=== PATIENT | male | born 1975 | race Caucasian/White ===

== ENCOUNTER 2022-03-19 15:34 | Emergency (ER) | payer OTHER, SELFPAY ==
[2022-03-19 15:49] VITALS: BP 151/103; PULSE 90; RESP 24; TEMP 35.8; O2SAT 100
--- NOTE | 2022-03-19 16:08 | ED.ABDPAIN ---
HPI - Abdominal Pain General Chief Complaint: Abdominal Pain Stated Complaint: abd pain n/v/d/sob Time Seen by Provider: 03/19/22 16:05 Source: patient Mode of arrival: ambulatory Limitations: no limitations History of Present Illness HPI narrative: Mr. Enamorado is a 46-year-old male patient presenting to the clinic today with a 3 day history of abdominal pain, nausea, vomiting, diarrhea, and shortness of breath. He is able to speak in full sentences as his SpO2 is 100% on room air currently. States that he has had abdominal pain this started on the left side but now radiates to the right side. He denies any known fever. He does feel as though his abdomen is distended. Currently rating his pain 02/15 Related Data Home Medications Medication Instructions Recorded Confirmed No Home Medications 03/19/22 03/19/22 Allergies Allergy/AdvReac Type Severity Reaction Status Date / Time codeine Allergy Unknown Itching Verified 03/19/22 17:09 Penicillins Allergy Unknown Unknown Verified 03/19/22 17:08 CODE Allergy Unknown ITCHING Uncoded 03/19/22 15:38 Review of Systems Review of Systems: Pertinent positives per HPI. Patient denies any fever, chills, rash, headache, visual changes, dizziness, cough, runny nose, sore throat, shortness of breath, chest pain, palpitations, constipation, or any urinary issues. [facility] Family History Family History Father Carcinoma of colon Mother Family history of lung cancer Other Family history of allergic disorder Hypertension Social History Social History Smoking status: Heavy tobacco smoker Comments At the time of my signature, I reviewed and agree with the nursing past medical, surgical, social, and family history. There is no relevant family history pertinent to the patient complaint. Exam Narrative: General: Well-developed, well nourished, in no apparent distress. Head: Normocephalic, atraumatic. Cardio: Regular rate and rhythm, s1 and s2 normal, no murmur appreciated. Resp: Clear to auscultation bilaterally, no rhonchi, rales, wheezing or rubs. Abdomen: Soft, pliable, distension, exquisite tenderness to palpation over the lower abdomen, no organomegly, no CVAT tenderness. Course Course Emergency Course: Portions of this record may have been created with voice recognition software. Level of Care: Express Care Visit Vital Signs Vital signs: Vital Signs Temperature 35.8 C L 03/19/22 15:49 Pulse Rate 90 03/19/22 15:49 Respiratory Rate 24 H 03/19/22 15:49 Blood Pressure 151/103 H 03/19/22 15:49 Pulse Oximetry 100 03/19/22 15:49 Oxygen Delivery Room Air 03/19/22 15:49 Temperature 35.8 C L 03/19/22 15:49 Pulse Rate 90 03/19/22 15:49 Respiratory Rate 24 H 03/19/22 15:49 Blood Pressure 151/103 H 03/19/22 15:49 Pulse Oximetry 100 03/19/22 15:49 Oxygen Delivery Room Air 03/19/22 15:49 Vital signs reviewed Transfer Transfered to: [facility] Transportation: Other ( private car) Transfer rationale: severe lower abdominal pain, shortness of breath, weak, nausea, vomiting, diarrhea Accepting physician: Dr. Betancourt Transfer comments: transfer via private car patient declined ALS MDM - Abdominal Pain MDM Narrative Medical decision making narrative: At the time of visit patient is sitting in a wheelchair moaning and in pain. Patient pushed my hand away when I tried to evaluate his abdomen. Recommend the patient be transferred to the ER for further evaluation as he has a 10/10 pain with weakness and shortness of breath. Contacted Dr. Betancourt @ [facility] and he accepts patient for transfer Differential Diagnosis Differential diagnosis: Likely abdominal pain, acute appendicitis, constipation, diverticulitis, gastroenteritis, pancreatitis and small bowel obstruction Discharge Plan Discharge Clinical Im
--- NOTE | 2022-03-19 16:16 | PC.NURSE ---
1605 provider to provider report given. initially pt stated would call brother to provide transportation, but brother unable to come to c and now will call someone else to provide transportation dt not wanting to go by ems at 1610.
--- NOTE | 2022-03-19 16:18 | PC.NURSE ---
has another person coming to [facility] to provide transportation to er for further f/u.
--- NOTE | 2022-03-19 16:20 | PC.NURSE ---
1618 report to demetri webb at er. pt came out of room and was calling for help to go to br. is currently in br and awaiting transportation to er.
--- NOTE | 2022-03-19 16:25 | PC.NURSE ---
1625 cont to be in br. stated had to do #2, aware to pull cord for nurse call when finished.
== END 2022-03-19 16:34 | disposition short-term general hospital (02) ==
PROVIDERS: Emergency Provider Nurse Practitioner Family
DX: R06.02 Shortness of breath (principal); R10.30 Lower abdominal pain, unspecified; R11.2 Nausea with vomiting, unspecified; R19.7 Diarrhea, unspecified; F17.200 Nicotine dependence, unspecified, uncomplicated
CPT/HCPCS: 99212; G0463

== ENCOUNTER 2022-03-19 16:57 | Inpatient (IN) | payer OTHER, SELFPAY ==
--- NOTE | ~2022-03-19 | CT_ITS ---
EXAMINATION: CT abdomen pelvis w con DATE: 03/19/2022 19:42 INDICATION: Low abdominal pain. TECHNIQUE: Computed tomography (CT) of the abdomen and pelvis was performed with 100 mL Omnipaque 350 intravenous contrast. Automated exposure control and iterative reconstruction technique were employe d. The dose-length product was 820.84 mGy-cm. COMPARISON: CT abdomen and pelvis 11/21/2013 FINDINGS: The visualized portions of the lung bases demonstrate mild atelectasis. No pleural effusion . The heart size is normal. No pericardial effusion. The liver is normal. There are changes of cholec ystectomy. The spleen, pancreas, adrenal glands, and kidneys are normal. There are scattered divertic ira in the colon. There is fat stranding around a diverticulum of the sigmoid colon. There is free ga s around sigmoid colon and scattered throughout the peritoneum including under the diaphragm. There i s wall thickening of the sigmoid colon and multiple loops of small bowel. There are dilated loops of small bowel, consistent with adynamic ileus. The appendix is normal. There is a small volume of ascit es. There are no pathologically enlarged lymph nodes. There is mild thoracolumbar spondylosis. IMPRESSION: 1. Perforated sigmoid diverticulitis with small volume of ascites, peritonitis, and adynamic ileus. Reviewed, dictated and finalized at location A. ANALYST
[2022-03-19 17:03] VITALS: BP 160/119; PULSE 103; RESP 16; TEMP 38.1; O2SAT 100
--- NOTE | 2022-03-19 17:26 | ECG_ITS ---
Measurements Intervals [place] Rate: 108 P: 19 FL: 116 QRS: -21 QRSD: 89 T: 59 QT: 323 QTc: 435 Interpretive Statements SINUS TACHYCARDIA WITH SHORT FL INTERVAL POSSIBLE LEFT ATRIAL ENLARGEMENT EARLY PRECORDIAL R/S TRANSITION LEFT VENTRICULAR HYPERTROPHY NONSPECIFIC ST & T-WAVE ABNORMALITY- ANTEROLATERAL LEADS ABNORMAL ECG NO PREVIOUS ECG AVAILABLE FOR COMPARISON Electronically Signed On 03-20-2022 6:40:31 [employer]AIGHT KNIFE [employer]UTTER MACHINE by Bill Gray D.O.
[2022-03-19 17:43] LABS: Basophils Absolute Auto 0.1 K/mm3 (0.0-0.1); Basophils Percent Auto 0.4 % (0.2-1.2); Hematocrit 47.1 % (42.0-52.0); Hemoglobin 16.4 g/dL (14.0-18.0); Immature Granulocyte Absolute 0.11 K/mm3 (0.00-0.031); Immature Granulocyte Percent A 0.6 % (0-0.5); Lymphocytes Absolute Auto 1.13 K/mm3 (0.9-3.2); Lymphocytes Percent Auto 5.9 % (18.3-44.2); Mean Corpuscular HGB Conc 34.8 g/dl (32-36); Mean Corpuscular Hemoglobin 31.2 pg (26-34); Mean Corpuscular Volume 89.5 fl (80-100); Mean Platelet Volume 11.7 fl (7.4-10.4); Monocytes Absolute Auto 0.8 K/mm3 (0.1-0.6); Monocytes Percent Auto 4.2 % (2.6-8.5); Neutrophils Percent Auto 88.9 % (45.5-73.1); Platelet Count Result 271 k/mm3 (150-375); Red Blood Count 5.26 M/mm3 (4.6-6.20); Red Cell Distribution Width 12.9 % (11.5-14.5); White Blood Count 19.1 K/mm3 (4.5-10.0)
[2022-03-19 17:55] LABS: Alanine Aminotransferase 39 U/L (6-50); Albumin Level 4.7 g/dL (3.5-5.1); Alkaline Phosphatase 125 U/L (38-126); Anion Gap 19 mmol/L (8-16); Aspartate Amino Transferase 26 U/L (17-59); Blood Urea Nitrogen 15 mg/dL (9-20); Carbon Dioxide 24 mmol/L (22-30); Chloride 89 mmol/L (98-107); Estimated CRCL calculation 106 ml/min; Estimated Glomerular Filt Rate > 60; Glucose 263 mg/dL (65-110); Lipase 29 U/L (23-300); Potassium 3.6 mmol/L (3.4-5.0); Sodium 132 mmol/L (137-145)
[2022-03-19] MEDS: ACETAMINOPHEN 500 MG TABLET 1000 MG PO (18:46)
--- NOTE | 2022-03-19 19:07 | ED.ABDPAIN ---
HPI - Abdominal Pain General Chief Complaint: Abdominal Pain Stated Complaint: abd pain Time Seen by Provider: 03/19/22 18:56 History of Present Illness HPI narrative: 46-year-old male presenting to the emergency department for evaluation of lower abdominal pain. Patient states the pain initially started approximately 3 days ago and was at the left lower quadrant. Patient states the pain is persisted and is now across the entire abdomen but more focal in the right lower quadrant. Patient does report associated nausea vomiting and diarrhea. Patient does have a prior history of cholecystectomy and ventral hernia without repair. Patient does have history of high blood pressure but does not take his lisinopril at this time. Patient denies any prior history of diabetes or ACS. Related Data Home Medications Medication Instructions Recorded Confirmed No Home Medications 03/19/22 03/19/22 Allergies Allergy/AdvReac Type Severity Reaction Status Date / Time codeine Allergy Unknown Itching Verified 03/19/22 17:09 Penicillins Allergy Unknown Unknown Verified 03/19/22 17:08 CODE Allergy Unknown ITCHING Uncoded 03/19/22 15:38 Review of Systems Review of Systems: CONSTITUTIONAL: Denies fever, chills, or sweats. EYES: Denies visual changes, redness, or discharge. ENT: Denies rhinorrhea, congestion, sore throat, or otalgia. CARDIOVASCULAR: Denies chest pain, palpitations, or edema. RESPIRATORY: Denies cough or dyspnea. GASTROINTESTINAL: See HPI GENITOURINARY: Denies dysuria or hematuria. SKIN: Denies rash or itching. MUSCULOSKELETAL: Denies back pain, joint pain, or myalgia. NEUROLOGIC: Denies headache, numbness, or weakness. PMFSH Family History Family History Father Carcinoma of colon Mother Family history of lung cancer Other Family history of allergic disorder Hypertension Social History Social History Smoking status: Heavy tobacco smoker Exam Narrative: APPEARANCE: Well appearing, no pain, no distress, well-nourished. HEAD: normocephalic, atraumatic. EYES: PERRLA/EOMI, conjunctivae clear. NOSE: Normal no drainage NECK: Supple. No adenopathy, no masses. RESPIRATORY: Airway patent, respirations nonlabored. Clear to auscultation bilaterally, no rales, rhonchi, wheezing. CARDIOVASCULAR: Regular rate and rhythm without murmurs rubs or gallops. ABDOMINAL: Soft, nondistended, decreased bowel sounds, lower abdominal tenderness to palpation with focal tenderness in the right lower quadrant. MUSCULOSKELETAL: Moves all extremities. Strength/ROM intact, No edema, No calf tenderness. NEURO: Alert. Cranial nerves II through XII intact. Good gait. Good coordination SKIN: Warm, dry. Normal Color PSYCHIATRIC: Normal affect/mood. Course Course Emergency Course: Case discussed with surgery and patient is being taken to the OR by Dr. Casas. Patient was started on Cipro and Flagyl. Patient was updated on the results of the work-up and plan for admission and surgery. All questions and concerns were addressed. Vital Signs Vital signs: Vital Signs Temperature 100.5 F H 03/19/22 17:03 Pulse Rate 103 H 03/19/22 17:03 Respiratory Rate 16 03/19/22 17:03 Blood Pressure 160/119 H 03/19/22 17:03 Pulse Oximetry 100 03/19/22 17:03 Oxygen Delivery Room Air 03/19/22 17:03 Temperature 100.5 F H 03/19/22 17:03 Pulse Rate 99 03/19/22 21:12 Respiratory Rate 22 H 03/19/22 21:12 Blood Pressure 158/108 H 03/19/22 19:15 Pulse Oximetry 97 03/19/22 21:12 Oxygen Delivery Room Air 03/19/22 17:03 MDM - Abdominal Pain Lab Data Attestation: I reviewed the patient's lab results. Result diagrams: 03/19/22 17:38 03/19/22 17:38 Labs: Lab Results 03/19/22 03/19/22 03/19/22 Range/Units 17:38 17:38 20:28 WBC 19.1 H (4.5-10.0) K/mm3 RBC 5.26
[2022-03-19 19:15] VITALS: BP 158/108; PULSE 96; RESP 17; O2SAT 97
[2022-03-19] MEDS: SODIUM CHLORIDE 0.9% IV 1,000 ML 999 ML IV CONT (19:23)
[2022-03-19] MEDS: HYDROmorphone HCL INJ (*CRX) 1 MG/ML SYR IV PUSH ×2 (19:23→21:40)
[2022-03-19] MEDS: ONDANSETRON INJ 4 MG/2 ML VIAL IV PUSH (19:23)
--- NOTE | 2022-03-19 19:30 | PC.NURSE ---
Patient taken to CT via stretcher.
[2022-03-19] MEDS: metroNIDAZOLE 500 MG/ISO 100ML 500 MG/100 ML BAG 100 MG IVPB (20:27)
[2022-03-19 21:09] LABS: SARS-CoV-2 RNA PCR Negative
[2022-03-19 21:12] VITALS: PULSE 99; RESP 22; O2SAT 97
[2022-03-19] MEDS: LACTATED RINGERS 1,000 ML 100 ML IV CONT (21:40)
[2022-03-19] MEDS: CIPROFLOXACIN 400 MG/D5W 200ML 200 ML 200 MG IVPB (21:41)
--- NOTE | 2022-03-19 21:42 | PM.IMHP ---
H&P: HPI History of Present Illness Date/Time: 03/19/22 21:42 Chief Complaint: Abdominal pain with loss of appetite, nausea and vomiting Narrative: This is [id number] tall white male presenting to the emergency department for evaluation of lower abdominal pain.? Patient states the pain initially started approximately 3 days ago and was at the left lower quadrant.? this came pain seemed to come on gradually over a 24 hour period. He ate okay on Tuesday but then since Tuesday has only been drinking water and feeling bad. He states I probably should have came in yesterday . Patient states the pain has persisted and is now across the entire abdomen but more focal in the right lower quadrant.? Patient does report associated nausea, vomiting, and diarrhea. Further history to me he states that he had 2 small loose stools this morning. Typically has 1 bowel movement today but over the last 3 days he has been having loose stools more frequently. Pain reached such in intensity today that he 1st went to an urgent care in the afternoon and after being checked they felt he was more serious than a good handle on send him to the emergency room. Workup in the emergency room tonight reveals a white count [id number]. He also had elevated glucose at 263 but not previously known to be diabetic. His blood pressure was elevated and he has had hypertension the past but not on anything now for last [address] scan of the abdomen and pelvis was completed and shows perforated sigmoid diverticulitis with free air surrounding a diverticulum in the sigmoid colon and extending elsewhere in the abdomen including under the diaphragms. There was also ileus with small bowel wall thickening of the loops of small bowel near the left lower quadrant. Patient has signs of peritonitis on exam. ?Patient does have a prior history of cholecystectomy and ventral hernia without repair.? Patient does have history of high blood pressure but does not take his lisinopril at this time.? Patient denies any prior history of diabetes. Review of Systems Constitutional: Comments: CONSTITUTIONAL: Denies fever, chills, or sweats. EYES: Denies visual changes, redness, or discharge. ENT: Denies rhinorrhea, congestion, sore throat, or otalgia. CARDIOVASCULAR: Denies chest pain, palpitations, or edema.Was on hypertensive medication until years ago. RESPIRATORY: Denies cough or dyspnea. GASTROINTESTINAL: See HPI, Previous history of cholecystectomy and hemorrhoid surgery GENITOURINARY: Denies dysuria or hematuria. SKIN: Denies rash or itching. MUSCULOSKELETAL: Denies back pain, joint pain, or myalgia. does complain of some right shoulder discomfort possibly related to regarding his abdomen and pushing himself up out of bed NEUROLOGIC: Denies headache, numbness, or weakness. [facility] Past Medical History Medical History (Updated 03/20/22 @ 00:00 by Background Daotis) Hypertension was on lisinopril for a while but stopped about 3 years ago when his pressure became better Marijuana abuse Obesity (BMI 30-39.9) Surgical History Surgical History (Updated 03/19/22 @ 21:56 by Ricardo Casas MD) History of hemorrhoidectomy History of laparoscopic cholecystectomy Family History Family History Father Carcinoma of colon Mother Family history of lung cancer Other Family history of allergic disorder Hypertension Social History Social History Smoking status: Heavy tobacco smoker Meds Home Medications and Allergies Home Medications Medication Instructions Recorded Confirmed Type No Home Medications 03/19/22 03/19/22 History Allergies Allergy/AdvReac Type Severity Reaction Status Date / Time codeine Allergy Unknown Itching Verified 03/19/22 17:09 Penicillins Allergy Unknown Unknown Verified 03/19/22 17:08 CODE Allergy Unknown ITCHING Uncoded 03/19/22
[2022-03-19 22:17] VITALS: TEMP 36.9
--- NOTE | 2022-03-19 22:33 | WPDANESEPP ---
Anes - Eval Pre Procedure Procedure: Operation Date: 03/19/22 22:30 Proposed Procedures p Exploratory Laparotomy, Pos Bowel Resec - Ricardo Casas MD Date/Time: 03/19/22 22:33 Pre Op Diagnosis: abd pain Patient Data Age: 46 Gender: M Height: 1.88 m Weight: 108.86 kg Last Vital Signs Temp 36.9 C 03/19/22 22:17 Pulse 99 03/19/22 21:12 Resp 22 H 03/19/22 21:12 BP 158/108 H 03/19/22 19:15 Pulse Ox 97 03/19/22 21:12 O2 Del Method Room Air 03/19/22 17:03 Allergies Allergy/AdvReac Type Severity Reaction Status Date / Time codeine Allergy Unknown Itching Verified 03/19/22 17:09 Penicillins Allergy Unknown Unknown Verified 03/19/22 17:08 CODE Allergy Unknown ITCHING Uncoded 03/19/22 15:38 Home Medications Medication Instructions Recorded Confirmed Type No Home Medications 03/19/22 03/19/22 History Laboratory Tests 03/19/22 03/19/22 03/19/22 17:38 17:38 20:28 WBC 19.1 K/mm3 H K/mm3 (4.5-10.0) RBC 5.26 M/mm3 M/mm3 (4.6-6.20) Hgb 16.4 g/dL g/dL (14.0-18.0) Hct 47.1 % % (42.0-52.0) MCV 89.5 fl fl (80-100) MCH 31.2 pg pg (26-34) MCHC 34.8 g/dl g/dl (32-36) RDW 12.9 % % (11.5-14.5) Plt Count 271 k/mm3 k/mm3 (150-375) MPV 11.7 fl H fl (7.4-10.4) Immature Gran % (Auto) 0.6 % H % (0-0.5) Neut % (Auto) 88.9 % H % (45.5-73.1) Lymph % (Auto) 5.9 % L % (18.3-44.2) [place] % (Auto) 4.2 % % (2.6-8.5) Eos % (Auto) 0.0 % % (0-4.4) Baso % (Auto) 0.4 % % (0.2-1.2) Lymph # (Auto) 1.13 K/mm3 K/mm3 (0.9-3.2) [place] # (Auto) 0.8 K/mm3 H K/mm3 (0.1-0.6) Eos # (Auto) 0.0 K/mm3 K/mm3 (0-0.3) Baso # (Auto) 0.1 K/mm3 K/mm3 (0.0-0.1) Abs Immat Gran (auto) 0.11 K/mm3 H K/mm3 (0.00-0.031) Absolute Neuts (auto) 17.0 K/mm3 H K/mm3 (1.3-6.7) Absolute Nucleated RBC 0.0 K/mm3 K/mm3 (0.0-0.012) Nucleated RBC % 0.0 % % (0.0-0.2) Sodium 132 mmol/L L mmol/L (137-145) Potassium 3.6 mmol/L mmol/L (3.4-5.0) Chloride 89 mmol/L L mmol/L (98-107) Carbon Dioxide 24 mmol/L mmol/L (22-30) Anion Gap 19 mmol/L H mmol/L (8-16) BUN 15 mg/dL mg/dL (9-20) Creatinine 1.00 mg/dL mg/dL (0.7-1.3) Estim Creat Clear Calc 106 ml/min ml/min Estimated GFR > 60 (59 - ) Glucose 263 mg/dL H mg/dL (65-110) Calcium 9.0 mg/dL mg/dL (8.4-10.2) Total Bilirubin 2.0 mg/dL H mg/dL (0.2-1.3) AST 26 U/L U/L (17-59) ALT 39 U/L U/L (6-50) Alkaline Phosphatase 125 U/L U/L (38-126) Total Protein 8.0 g/dL g/dL (6.3-8.2) Albumin 4.7 g/dL g/dL (3.5-5.1) Lipase 29 U/L U/L (23-300) SARS-CoV-2 RNA (RT-PCR) Negative Patient hx anesthesia problems: none Family hx anesthesia problems: none Results Review: All pre-operative results and documents have been reviewed as part of the pre-operative evaluation. [facility] Past Medical History Medical History (Updated 03/19/22 @ 22:33 by Vidhya Lopez CRNA) Hypertension was on lisinopril for a while but stopped about 3 years ago when his pressure became better Marijuana abuse Obesity (BMI 30-39.9) Surgical History Surgical History (Updated 03/19/22 @ 21:56 by Ricardo Casas MD) History of hemorrhoidectomy History of laparoscopic cholecystectomy Family History Family History Father Carcinoma of colon Mother Family history of lung cancer Other Family history of allergic disorder Hypertension Social History Social History Smoking status: Heavy tobacco smoker Exam Day of Procedu
--- NOTE | 2022-03-19 22:52 | P.PNAN_ITS ---
Anes - Eval Final PreProcedure Day of Procedure 03/19/22 22:52 Heart: regular rate and rhythm Lungs: clear to auscultation Airway: Mallampati scale class II Neurological: alert and oriented Last oral intake: >/= 8 hours ASA classification: III Emergent: yes Anesthetic plan: proceed Anesthesia type and monitoring: general ETT and standard monitoring Results Review: All pre-operative results and documents have been reviewed as part of the pre- operative evaluation. Informed Consent: The patient's anesthetic plan and its attendant risks and benefits were discussed with the patient/family/POA. Questions were solicited and answers provided to the satisfaction of the patient/family/POA.
[2022-03-20] VITALS (14 sets, daily range): BP systolic 131–153; BP diastolic 94–107; PULSE 84–94; RESP 11–20; TEMP 36.1–36.8; O2SAT 93–97; BMI 28.6
[2022-03-20] MEDS: LACTATED RINGERS 1,000 ML 30 ML IV CONT ×2 (01:30)
[2022-03-20] MEDS: fentaNYL CITRATE INJ (*CRX) 100 MCG/2 ML VIAL 25 MCG IV PUSH ×5 (01:48→02:52)
[2022-03-20] MEDS: ONDANSETRON INJ 4 MG/2 ML VIAL IV PUSH ×4 (02:11→20:25)
--- NOTE | 2022-03-20 02:11 | W.PM.PROC2 ---
Procedure Note - Detailed Date of Procedure 03/20/22 Pre-op Diagnosis Perforated sigmoid diverticulitis with peritonitis Post-op Diagnosis Same Procedure Performed Insé's Procedure (Open sigmoid colectomy with left-sided end colostomy). Exploratory laparotomy Peritoneal irrigation Surgeon Ricardo Casas MD Engine Oiler Miriam MEEKS, [place] field research assistant Anesthesia General Indications See history and physical Patient presented to the ER with 3 days of worsening pain in the abdomen along with nausea vomiting and some diarrhea. Workup in the ED revealed elevated white count [id number] significant peritoneal tenderness and a CT scan showing free perforation of a sigmoid diverticulum into the mid abdomen with free air under the diaphragms. Findings Open midline incision was made approximately 2 cm opening on the mesenteric side of the sigmoid colon at the proximal extent. There were several loops of small bowel densely adherent along with omentum to an area of fluid collection next to this. There was also yellowish cloudy permanent fluid up along the right side of the liver and anteriorly in up near the spleen. Description of Procedure The patient was brought to the operating room and placed in the supine position. Angulo catheter was placed after intubation and anesthetization in the OR. The patient was appropriately padded and time-out was performed confirming patient and surgical plan. The perineum was prepped with Betadine and the abdomen was prepped with chlorhexidine. Four towels were placed around the mid abdomen and a laparotomy drape was applied. Following this I opened through a generous midline incision started in the suprapubic region extending up and just a little bit around and above the umbilicus on the right. We continued this down through the subcutaneous tissues to expose the midline fascia. I Tented up the peritoneum with a hemostat andentered the abdomen just below the umbilicus a finger was placed in the peritoneum and we opened the midline fascia and peritoneum up to the upper extent of the incision slightly above the level of the umbilicus and down not quite to the pubic bone. Careful exploration was started and immediately underneath slightly to the left of this midline incision there was the upper portion of the sigmoid. There was about a 2 cm hole in the sigmoid and cloudy yellow fluid and a small amount of feculent material wasl coming out of it. There was inflammatory exudate on the loops of small bowel surrounding this area. also the omentum was involved in trying to wall this off. The The loops of small bowel were carefully dissected away and they did come away fairly easily. We suctioned some cloudy fluid from around the area and gently broke up some inflammatory adhesions between these loops of bowel the omentum and the medial side of the proximal sigmoid colon. I decided not to send culture since it appeared to be feculent material and we would treat for this anyway with the Cipro and metronidazole that he received preop. I then carefully the small-bowel and packed it away cephalad. Prior to doing much dissection we obtained the large wound protector and inserted this and did the exploration through this along with the surgical resection. The patient was placed in Trendelenburg position and we carefully took down the white line of Toldt lateral to the sigmoid colon extending down to its junction Above but near rectosigmoid area. This allowed us to mobilize this portion of the colon up into the wound to some degree. I then dissected superiorly and freed this colon up laterally such that we were a good 10 cm above the opening. this dissection used Bovie cautery and then the LigaSure device along the lateral attachments of the descending colon. I was able to identify the left ureter in the retroperitoneum posterior to our dissection and we were well away from this during the mobilization of the left colo
--- NOTE | 2022-03-20 03:40 | ADMGEN ---
This patient, Bernard Enamorado, was admitted to [facility] Surg Room 313-01. Patient/family oriented to hospital policies and general routines including ID bracelet, bed and alarms, visiting hours, pain management, procedures, bathroom and other care routines, personal items, smoking policy, room service/diet, and visiting hours. Information on how to activate the Rapid Response Team has been discussed. Patient/Family are encouraged to report perceived risks to care and to ask questions if they do not understand what they are told or what they should do.
[2022-03-20] MEDS: MORPHINE SULFATE (*CRX) 4 MG/ML INJ IV PUSH ×4 (03:59→16:17)
[2022-03-20] MEDS: metroNIDAZOLE 500 MG/ISO 100ML 500 MG/100 ML BAG 100 MG IVPB ×3 (04:04→20:37)
[2022-03-20] MEDS: LACTATED RINGERS 1,000 ML 100 ML IV CONT ×2 (04:32→16:17)
--- NOTE | 2022-03-20 09:14 | WPDANESPN ---
Anes - Prog Note Post-Op Date/Time: 03/20/22 09:14 Cardiovascular status: normal Respiratory status: normal Airway patency: baseline Mental status: baseline Post-Op hydration status: normal Vital Signs: Last Vital Signs Temp 36.8 C 03/20/22 05:00 Pulse 91 03/20/22 05:00 Resp 18 03/20/22 05:00 BP 142/96 H 03/20/22 06:36 Pulse Ox 96 03/20/22 05:00 O2 Del Method Room Air 03/20/22 02:44 O2 Flow Rate 8 03/20/22 01:44 Pain Score (VAS): 10 I/O: Intake & Output 03/19/22 03/20/22 03/20/22 23:59 07:59 15:59 Intake Total 1400 1900 100 Output Total 335 Balance 1400 1565 100 Laboratory Tests 03/19/22 17:38 03/19/22 17:38 03/19/22 03/19/22 03/19/22 17:38 17:38 20:28 WBC 19.1 H RBC 5.26 Hgb 16.4 Hct 47.1 MCV 89.5 MCH 31.2 MCHC 34.8 RDW 12.9 Plt Count 271 MPV 11.7 H Immature Gran % (Auto) 0.6 H Neut % (Auto) 88.9 H Lymph % (Auto) 5.[address] [place] % (Auto) 4.2 Eos % (Auto) 0.0 Baso % (Auto) 0.4 Lymph # (Auto) 1.13 [place] # (Auto) 0.8 H Eos # (Auto) 0.0 Baso # (Auto) 0.1 Abs Immat Gran (auto) 0.11 H Absolute Neuts (auto) 17.0 H Absolute Nucleated RBC 0.0 Nucleated RBC % 0.0 Sodium 132 L Potassium 3.6 Chloride 89 L Carbon Dioxide 24 Anion Gap 19 H BUN 15 Creatinine 1.00 Estim Creat Clear Calc 106 Estimated GFR > 60 Glucose 263 H Calcium 9.0 Magnesium Total Bilirubin 2.0 H AST 26 ALT 39 Alkaline Phosphatase 125 Total Protein 8.0 Albumin 4.7 Lipase 29 SARS-CoV-2 RNA (RT-PCR) Negative 03/20/22 07:34 WBC RBC Hgb Hct MCV MCH MCHC RDW Plt Count MPV Immature Gran % (Auto) Neut % (Auto) Lymph % (Auto) [place] % (Auto) Eos % (Auto) Baso % (Auto) Lymph # (Auto) [place] # (Auto) Eos # (Auto) Baso # (Auto) Abs Immat Gran (auto) Absolute Neuts (auto) Absolute Nucleated RBC Nucleated RBC % Sodium Potassium Chloride Carbon Dioxide Anion Gap BUN Creatinine Estim Creat Clear Calc Estimated GFR Glucose Calcium Magnesium 2.0 Total Bilirubin AST ALT Alkaline Phosphatase Total Protein Albumin Lipase SARS-CoV-2 RNA (RT-PCR) Post-procedural complaints: none Patient Feedback: Patient satisfied with anesthetic care.
[2022-03-20] MEDS: ENOXAPARIN 40 MG/0.4 ML SYRINGE SUB-Q (09:34)
[2022-03-20] MEDS: FAMOTIDINE 20 MG/2 ML VIAL IV PUSH ×2 (09:34→20:35)
[2022-03-20 11:37] LABS: Anion Gap 11 mmol/L (8-16); Blood Urea Nitrogen 12 mg/dL (9-20); Calcium 8.6 mg/dL (8.4-10.2); Carbon Dioxide 27 mmol/L (22-30); Chloride 96 mmol/L (98-107); Estimated CRCL calculation 116 ml/min; Estimated Glomerular Filt Rate > 60; Glucose 151 mg/dL (65-110); Potassium 3.6 mmol/L (3.4-5.0); Sodium 134 mmol/L (137-145)
[2022-03-20 12:13] LABS: Hemoglobin 15.1 g/dL (14.0-18.0); Mean Corpuscular HGB Conc 35.1 g/dl (32-36); Mean Corpuscular Hemoglobin 30.8 pg (26-34); Mean Corpuscular Volume 87.8 fl (80-100); Mean Platelet Volume 12.2 fl (7.4-10.4); Platelet Count Result 249 k/mm3 (150-375); Red Cell Distribution Width 13.1 % (11.5-14.5); White Blood Count 16.5 K/mm3 (4.5-10.0)
[2022-03-20 13:49] LABS: Band Neutrophils Percent 22 % (0-6); Lymphocytes Absolute Manual 1.48 K/mm3 (1.1-4.5); Monocytes Absolute Manual 0.49 K/mm3 (0.1-0.90); Monocytes Percent Manual 3 % (3-9); Neutrophils Absolute Manual 14.52 K/mm3 (1.3-6.7); Neutrophils Percent Manual 66 % (46-73); Platelet Estimate Adequate (Adequate); Schistocytes None Seen (NORMAL); Total Cells Counted 100
--- NOTE | 2022-03-20 15:56 | PM.PNGS ---
Progress Note: A&P Assessment and Plan (1) Perforation of sigmoid colon due to diverticulitis: Code(s): K57.20 - Diverticulitis of large intestine with perforation and abscess without bleeding Status: Acute Assessment and Plan: This is the main reason for the patient's admission and his surgical intervention. Vital signs are stable. There is no signs of continuing peritonitis. Ostomy appears to be pink. However bowels probably not functional yet even though he has some bowel sounds. Will continue NG suction and decompression to try to prevent significant abdominal bloating which may affect the ostomy viability. Will await return of bowel function. Continue IV fluids and IV antibiotics. (2) Marijuana abuse: Code(s): F12.10 - Cannabis abuse, uncomplicated Status: Acute Assessment and Plan: Patient denies anxiety although he is complaining about various small things in the room. Denies need for nicotine patch. States he does not smoke regular cigarettes but rather occasional cannabis (3) Peritonitis: Code(s): K65.9 - Peritonitis, unspecified Status: Acute Assessment and Plan: status post peritoneal washout. DAVID drain in place in the pelvis. Will continue antibiotics. (4) Obesity (BMI 30-39.9): Code(s): E66.9 - Obesity, unspecified Status: Acute Assessment and Plan: Resolved, BMI down to 28.5 (5) Hypertension: Code(s): I10 - Essential (primary) hypertension Status: Acute Assessment and Plan: whether it is just pain or if the patient has his previously known history of hypertension being recurrent is not yet known. Will treat with p.r.n. hydralazine if systolic goes above 160. Will monitor with serial checks. Will involve hospitalist if medications appear to be needed. Subjective Subjective Date/Time Seen: 03/20/22 13:56 Post Op day: 1 ( Somewhat improved) Patient reports: feels better, still having pain ( mainly left side of the abdomen), no flatus and no bowel movement Interval history: patient requests NG out but I explained to him why we needed. Patient states the nurses had to change the ostomy bag because it began leaking this morning. Review of Systems Review of Systems: All systems reviewed & are unremarkable except as noted in HPI and below Constitutional: Constitutional: Reports as per HPI, Denies chills and Denies fever(s) Cardiovascular: Cardiovascular: Denies chest pain and Denies dyspnea Respiratory: Respiratory: Reports no additional respiratory complaints and Denies dyspnea Gastrointestinal: Gastrointestinal: Reports as per HPI and Denies bloating Musculoskeletal: Musculoskeletal: Reports no additional musculoskeletal complaints Neurologic: Denies memory loss Psychiatric: Psychiatric: Denies memory loss Exam Const: General: alert and awake Orientation/consciousness: patient oriented x3 HENMT: Head: normal to inspection Eyes: Sclera: sclerae normal Pupils: Equal, round and reactive pupils present Neck: Neck: normal visual inspection and no JVD Chest: Chest palpation & inspection: normal inspection of the chest Resp: Effort & Inspection: normal respiratory effort Auscultation: clear to auscultation bilaterally Cardio: Rate: regular rate GI: Inspection: incision ( Not inspected today. Dry gauze dressing over midline incision) and other ( DAVID drain right lower quadrant without much drainage) GI Palp: Yes abdominal tenderness ( consistent with surgery from last night) Auscultation: Hypoactive bowel sounds present Other: inspection of the ostomy reveals the mucosa appears to be pink but flat with the skin level. No gas or liquid in bag. Neuro: General: patient oriented x3 Cranial nerves: Yes Equal, round and reactive pupils present Objective Data Vital Signs Vital Signs: Vital Signs - 24 hr 03/19/22 17:03 03/19/22 19:15 03/19/22 21:12 Temperature 38.1 C H Pulse Rat
[2022-03-20 17:15] LABS: Appearance Urine Slightly Cloudy (Clear); Bilirubin Urine 1+ (Negative); Blood Urine 2+ (Negative); Color Urine Yellow (Yellow); Glucose Urine UA Negative (Negative); Ketones Urine 1+ mg/dL (Negative); Leukocyte Esterase Ur Negative LEU/UL (Negative); Nitrate Urine Negative (Negative); Protein Urine 2+ mg/dL (Negative); Specific Grav Ur >= 1.030 (1.001-1.035)
[2022-03-20 17:21] LABS: Bacteria Urine Trace /hpf; Mucus Urine Rare /lpf; RBC Urine 21-50 /hpf (0-2); Squamous Epithelial Cell Urine Rare /hpf (Few)
[2022-03-20 17:32] LABS: Add Urine Microscopic? YES
[2022-03-20] MEDS: MORPHINE SULFATE (*CRX) 2 MG/ML INJ IV PUSH (20:25)
[2022-03-21] MEDS: MORPHINE SULFATE (*CRX) 4 MG/ML INJ IV PUSH ×6 (00:16→22:30)
[2022-03-21] MEDS: LACTATED RINGERS 1,000 ML 100 ML IV CONT (03:47)
[2022-03-21] MEDS: metroNIDAZOLE 500 MG/ISO 100ML 500 MG/100 ML BAG 100 MG IVPB ×3 (03:57→22:29)
[2022-03-21 05:41] VITALS: BP 175/97; PULSE 99; RESP 18; TEMP 36.2; O2SAT 95
[2022-03-21 06:49] LABS: Basophils Percent Auto 0.2 % (0.2-1.2); Eosinophils Percent Auto 0.1 % (0-4.4); Hematocrit 41.4 % (42.0-52.0); Immature Granulocyte Absolute 0.11 K/mm3 (0.00-0.031); Immature Granulocyte Percent A 0.7 % (0-0.5); Mean Corpuscular HGB Conc 33.8 g/dl (32-36); Mean Corpuscular Hemoglobin 30.5 pg (26-34); Mean Corpuscular Volume 90.2 fl (80-100); Mean Platelet Volume 11.5 fl (7.4-10.4); Monocytes Absolute Auto 1.1 K/mm3 (0.1-0.6); Monocytes Percent Auto 6.6 % (2.6-8.5); Neutrophils Absolute Auto 13.4 K/mm3 (1.3-6.7); Neutrophils Percent Auto 81.4 % (45.5-73.1); Platelet Count Result 260 k/mm3 (150-375); Red Blood Count 4.59 M/mm3 (4.6-6.20); Red Cell Distribution Width 13.2 % (11.5-14.5); White Blood Count 16.4 K/mm3 (4.5-10.0)
[2022-03-21 07:07] LABS: Alanine Aminotransferase 22 U/L (6-50); Albumin Level 3.3 g/dL (3.5-5.1); Alkaline Phosphatase 96 U/L (38-126); Anion Gap 8 mmol/L (8-16); Aspartate Amino Transferase 21 U/L (17-59); Bilirubin,Total 0.7 mg/dL (0.2-1.3); Blood Urea Nitrogen 13 mg/dL (9-20); Calcium 7.9 mg/dL (8.4-10.2); Carbon Dioxide 29 mmol/L (22-30); Chloride 95 mmol/L (98-107); Estimated CRCL calculation 123 ml/min; Estimated Glomerular Filt Rate > 60; Glucose 114 mg/dL (65-110); Potassium 3.5 mmol/L (3.4-5.0); Sodium 132 mmol/L (137-145)
[2022-03-21] MEDS: ENOXAPARIN 40 MG/0.4 ML SYRINGE SUB-Q (09:40)
[2022-03-21] MEDS: FAMOTIDINE 20 MG/2 ML VIAL IV PUSH ×2 (09:41→22:31)
[2022-03-21] MEDS: KCL 20 MEQ/D5/0.9% SOD CHL 1,000 ML 100 ML IV CONT (09:45)
[2022-03-21 14:00] VITALS: BP 151/96; PULSE 83; RESP 18; TEMP 36.2; O2SAT 94
--- NOTE | 2022-03-21 16:42 | PM.PNGS ---
Progress Note: A&P Assessment and Plan (1) Perforation of sigmoid colon due to diverticulitis: Code(s): K57.20 - Diverticulitis of large intestine with perforation and abscess without bleeding Status: Acute Assessment and Plan: This is the main reason for the patient's admission and his surgical intervention. Vital signs are stable. There is no signs of continuing peritonitis. Ostomy appears to be pink. However bowels probably not functional yet even though he has some bowel sounds. Will continue NG suction and decompression to try to prevent significant abdominal bloating which may affect the ostomy viability. Will await return of bowel function. Even though he has pretty good bowel sounds there was no gas or stool in the ostomy yet. Continue IV fluids and IV antibiotics. Will plan to change dressing to check midline incision and have ostomy nurses see on Tuesday. (2) Marijuana abuse: Code(s): F12.10 - Cannabis abuse, uncomplicated Status: Acute Assessment and Plan: Patient denies anxiety although he is complaining about various small things in the room. Denies need for nicotine patch. States he does not smoke regular cigarettes but rather occasional cannabis (3) Peritonitis: Code(s): K65.9 - Peritonitis, unspecified Status: Acute Assessment and Plan: status post peritoneal washout. DAVID drain in place in the pelvis. Will continue antibiotics. (4) Obesity (BMI 30-39.9): Code(s): E66.9 - Obesity, unspecified Status: Acute Assessment and Plan: Resolved, BMI down to 28.5 (5) Hypertension: Code(s): I10 - Essential (primary) hypertension Status: Acute Assessment and Plan: Blood pressure still trending as high. Could be with pain so will wait another day of following then consider medicine consultation if continues to be high. He has p.r.n. hydralazine ordered. Whether it is just pain or if the patient who has previously known history of hypertension being recurrent is not yet known. Will treat with p.r.n. hydralazine if systolic goes above 160. Will monitor with serial checks. Will involve hospitalist if medications appear to be needed. Subjective Subjective Date/Time Seen: 03/21/22 16:42 Post Op day: 2 ( Making slow progress) Patient reports: no new complaints, feels better, pain is less, no flatus and no bowel movement ( via ostomy) Interval history: patient reports he has gotten up and walked in the room. I encouraged him to walk in the hallway after having his NG clamped in order to improve ileus quicker. He seemed understand. Review of Systems Review of Systems: All systems reviewed & are unremarkable except as noted in HPI and below Constitutional: Constitutional: Reports as per HPI, Denies chills and Denies fever(s) Cardiovascular: Cardiovascular: Denies chest pain and Denies dyspnea Respiratory: Respiratory: Reports no additional respiratory complaints and Denies dyspnea Gastrointestinal: Gastrointestinal: Reports as per HPI and Denies bloating Musculoskeletal: Musculoskeletal: Reports no additional musculoskeletal complaints Neurologic: Denies memory loss Psychiatric: Psychiatric: Denies memory loss Exam Const: General: alert and awake Orientation/consciousness: patient oriented x3 HENMT: Head: normal to inspection Eyes: Sclera: sclerae normal Pupils: Equal, round and reactive pupils present Neck: Neck: normal visual inspection and no JVD Chest: Chest palpation & inspection: normal inspection of the chest Resp: Effort & Inspection: normal respiratory effort Auscultation: clear to auscultation bilaterally Cardio: Rate: regular rate GI: Inspection: incision ( Not inspected today. Dry gauze dressing over midline incision) and other ( DAVID drain right lower quadrant with approximately 65 cc out last 24 hours) GI Palp: Yes abdominal tenderness ( Near incision site) Auscultation: nor
[2022-03-21] MEDS: ONDANSETRON INJ 4 MG/2 ML VIAL IV PUSH (18:17)
[2022-03-21 22:00] VITALS: BP 168/98; PULSE 89; RESP 18; TEMP 36.7; O2SAT 96
[2022-03-22] MEDS: KCL 20 MEQ/D5/0.9% SOD CHL 1,000 ML 100 ML IV CONT ×2 (03:25→20:04)
[2022-03-22] MEDS: MORPHINE SULFATE (*CRX) 4 MG/ML INJ IV PUSH (03:26)
[2022-03-22] MEDS: metroNIDAZOLE 500 MG/ISO 100ML 500 MG/100 ML BAG 100 MG IVPB ×3 (03:26→20:03)
[2022-03-22 06:00] VITALS: BP 151/105; PULSE 86; RESP 17; TEMP 36.8; O2SAT 95
[2022-03-22 07:21] LABS: Basophils Absolute Auto 0.1 K/mm3 (0.0-0.1); Basophils Percent Auto 0.4 % (0.2-1.2); Eosinophils Absolute Auto 0.2 K/mm3 (0-0.3); Eosinophils Percent Auto 1.4 % (0-4.4); Hematocrit 41.4 % (42.0-52.0); Hemoglobin 14.2 g/dL (14.0-18.0); Immature Granulocyte Absolute 0.17 K/mm3 (0.00-0.031); Immature Granulocyte Percent A 1.1 % (0-0.5); Lymphocytes Absolute Auto 2.23 K/mm3 (0.9-3.2); Mean Corpuscular HGB Conc 34.3 g/dl (32-36); Mean Corpuscular Hemoglobin 30.5 pg (26-34); Mean Corpuscular Volume 88.8 fl (80-100); Mean Platelet Volume 11.3 fl (7.4-10.4); Monocytes Absolute Auto 1.2 K/mm3 (0.1-0.6); Monocytes Percent Auto 7.2 % (2.6-8.5); Neutrophils Absolute Auto 12.1 K/mm3 (1.3-6.7); Neutrophils Percent Auto 75.9 % (45.5-73.1); Platelet Count Result 308 k/mm3 (150-375); Red Blood Count 4.66 M/mm3 (4.6-6.20); Red Cell Distribution Width 13.2 % (11.5-14.5); White Blood Count 15.9 K/mm3 (4.5-10.0)
[2022-03-22 07:37] LABS: Anion Gap 12 mmol/L (8-16); Blood Urea Nitrogen 12 mg/dL (9-20); Calcium 7.9 mg/dL (8.4-10.2); Carbon Dioxide 27 mmol/L (22-30); Chloride 97 mmol/L (98-107); Estimated CRCL calculation 155 ml/min; Estimated Glomerular Filt Rate > 60; Glucose 121 mg/dL (65-110); Potassium 3.3 mmol/L (3.4-5.0); Sodium 136 mmol/L (137-145)
--- NOTE | 2022-03-22 07:40 | PC.NURSE ---
Pt walked with walker with shabnam and RN alongside of him at 1000 on 03/22/2022 from his room to the end of the hallway and back to his room. Pt had some SOB and took periodic breaks due to constant abdominal pain. Pt states that took a lot out of him but it felt good to be out of bed.
[2022-03-22] MEDS: MORPHINE SULFATE (*CRX) 2 MG/ML INJ IV PUSH ×4 (08:09→20:14)
[2022-03-22] MEDS: ONDANSETRON INJ 4 MG/2 ML VIAL IV PUSH ×2 (08:09→14:24)
[2022-03-22] MEDS: FAMOTIDINE 20 MG/2 ML VIAL IV PUSH ×2 (09:25→20:09)
[2022-03-22] MEDS: ENOXAPARIN 40 MG/0.4 ML SYRINGE SUB-Q (09:25)
[2022-03-22 14:10] VITALS: BP 168/106; PULSE 70; RESP 16; TEMP 36.4; O2SAT 98
[2022-03-22] MEDS: POTASSIUM CHLORIDE INJ 40 MEQ in SODIUM CHLORIDE 0.9% IV 500 ML 130 MEQ IVPB (14:24)
--- NOTE | 2022-03-22 17:16 | PM.PNGS ---
Progress Note: A&P Assessment and Plan (1) Perforation of sigmoid colon due to diverticulitis: Code(s): K57.20 - Diverticulitis of large intestine with perforation and abscess without bleeding Status: Acute Assessment and Plan: This is the main reason for the patient's admission and his surgical intervention. Vital signs are stable. There is no signs of continuing peritonitis. Ostomy appears to be red. However bowels probably not functional yet even though he has some bowel sounds. Will continue NG suction and decompression to try to prevent significant abdominal bloating which may affect the ostomy viability. Will await return of bowel function. Even though he has pretty good bowel sounds there was no gas or stool in the ostomy yet. Continue IV fluids and IV antibiotics. Will plan to change dressing to check midline incision in a.m. Ostomy nurses to see and begin ostomy training. (2) Marijuana abuse: Code(s): F12.10 - Cannabis abuse, uncomplicated Status: Acute Assessment and Plan: Patient denies anxiety although he is complaining about various small things in the room. Denies need for nicotine patch. States he does not smoke regular cigarettes but rather occasional cannabis (3) Peritonitis: Code(s): K65.9 - Peritonitis, unspecified Status: Acute Assessment and Plan: status post peritoneal washout. DAVID drain in place in the pelvis. Will continue antibiotics. (4) Obesity (BMI 30-39.9): Code(s): E66.9 - Obesity, unspecified Status: Acute Assessment and Plan: Resolved, BMI down to 28.5 (5) Hypertension: Code(s): I10 - Essential (primary) hypertension Status: Acute Assessment and Plan: Blood pressure still trending as high. Could be with pain so will wait another day of following then consider medicine consultation if continues to be high. He has p.r.n. hydralazine ordered. Whether it is just pain or if the patient who has previously known history of hypertension being recurrent is not yet known. Will treat with p.r.n. hydralazine if systolic goes above 160. Will monitor with serial checks. Will involve hospitalist if medications appear to be needed. Subjective Subjective Date/Time Seen: 03/22/22 07:16 Post Op day: 3 ( Stable with ileus) Patient reports: no new complaints, still having pain, no flatus and no bowel movement Interval history: patient reports he did get out and walk in the hallway yesterday but only once. I encouraged him to do it 3 times a day and be up in the chair more than in bed. Review of Systems Review of Systems: All systems reviewed & are unremarkable except as noted in HPI and below Constitutional: Constitutional: Reports as per HPI, Denies chills and Denies fever(s) Cardiovascular: Cardiovascular: Denies chest pain and Denies dyspnea Respiratory: Respiratory: Reports no additional respiratory complaints and Denies dyspnea Gastrointestinal: Gastrointestinal: Reports as per HPI and Denies bloating Musculoskeletal: Musculoskeletal: Reports no additional musculoskeletal complaints Neurologic: Denies memory loss Psychiatric: Psychiatric: Denies memory loss Exam Const: General: alert and awake Orientation/consciousness: patient oriented x3 HENMT: Head: normal to inspection Eyes: Sclera: sclerae normal Pupils: Equal, round and reactive pupils present Neck: Neck: normal visual inspection and no JVD Chest: Chest palpation & inspection: normal inspection of the chest Resp: Effort & Inspection: normal respiratory effort Auscultation: clear to auscultation bilaterally Cardio: Rate: regular rate GI: Inspection: incision ( Not inspected today. Dry gauze dressing over midline incision) and other ( DAVID drain right lower quadrant with approximately 10 cc out last 24 hours) GI Palp: Yes abdominal tenderness ( Near incision site) Auscultation: normal bowel sounds Other: in
[2022-03-22 17:40] VITALS: BP 175/109; TEMP 36.4
[2022-03-22] MEDS: hydrALAZINE HCL 20 MG/ML VIAL 10 MG IV PUSH (17:40)
[2022-03-22 18:41] VITALS: BP 153/98
[2022-03-22 20:00] VITALS: PULSE 87; RESP 20; O2SAT 98
[2022-03-22 22:00] VITALS: BP 160/120; PULSE 87; RESP 20; TEMP 36.6; O2SAT 98
[2022-03-23] VITALS (7 sets, daily range): BP systolic 152–168; BP diastolic 92–111; PULSE 69–83; RESP 14–18; TEMP 35.6–37.1; O2SAT 97–99
[2022-03-23] MEDS: hydrALAZINE HCL 20 MG/ML VIAL 10 MG IV PUSH (00:09)
[2022-03-23] MEDS: MORPHINE SULFATE (*CRX) 2 MG/ML INJ IV PUSH ×6 (00:14→22:53)
[2022-03-23] MEDS: metroNIDAZOLE 500 MG/ISO 100ML 500 MG/100 ML BAG 100 MG IVPB ×3 (03:49→20:04)
[2022-03-23 06:28] LABS: Basophils Absolute Auto 0.2 K/mm3 (0.0-0.1); Eosinophils Absolute Auto 0.4 K/mm3 (0-0.3); Eosinophils Percent Auto 2.3 % (0-4.4); Hematocrit 45.1 % (42.0-52.0); Hemoglobin 14.8 g/dL (14.0-18.0); Immature Granulocyte Absolute 0.61 K/mm3 (0.00-0.031); Lymphocytes Absolute Auto 2.59 K/mm3 (0.9-3.2); Lymphocytes Percent Auto 16.8 % (18.3-44.2); Mean Corpuscular HGB Conc 32.8 g/dl (32-36); Mean Corpuscular Hemoglobin 30.6 pg (26-34); Mean Corpuscular Volume 93.2 fl (80-100); Mean Platelet Volume 10.9 fl (7.4-10.4); Monocytes Absolute Auto 1.5 K/mm3 (0.1-0.6); Monocytes Percent Auto 9.9 % (2.6-8.5); Neutrophils Absolute Auto 10.2 K/mm3 (1.3-6.7); Platelet Count Result 334 k/mm3 (150-375); Red Blood Count 4.84 M/mm3 (4.6-6.20); Red Cell Distribution Width 13.5 % (11.5-14.5); White Blood Count 15.4 K/mm3 (4.5-10.0)
[2022-03-23 06:42] LABS: Anion Gap 11 mmol/L (8-16); Blood Urea Nitrogen 11 mg/dL (9-20); Calcium 7.8 mg/dL (8.4-10.2); Carbon Dioxide 25 mmol/L (22-30); Chloride 100 mmol/L (98-107); Estimated CRCL calculation 155 ml/min; Estimated Glomerular Filt Rate > 60; Glucose 117 mg/dL (65-110); Magnesium 2.2 mg/dL (1.6-2.3); Potassium 3.3 mmol/L (3.4-5.0); Sodium 136 mmol/L (137-145)
[2022-03-23] MEDS: KCL 20 MEQ/D5/0.9% SOD CHL 1,000 ML 100 ML IV CONT (07:27)
--- NOTE | 2022-03-23 08:52 | PM.PNGS ---
Progress Note: A&P Assessment and Plan (1) Perforation of sigmoid colon due to diverticulitis: Code(s): K57.20 - Diverticulitis of large intestine with perforation and abscess without bleeding Status: Acute Assessment and Plan: This is the main reason for the patient's admission and his surgical intervention. Vital signs are stable. There is no signs of continuing peritonitis. Ostomy appears to be red. However bowels probably not yet adequately functional even though he has some bowel sounds. however, nurse noted gas in the bag and burped at this morning. Will continue NG suction and decompression to try to prevent significant abdominal bloating which may affect the ostomy viability. Will await return of bowel function. May be able to try clamping routine on NG later today if ostomy begins at least passing gas. Continue IV fluids and IV antibiotics. Potassium again only 3.3 despite 40 mEq rider yesterday. Will repeat 40 mEq per rider today. Dressing changed on incision this date. No surrounding erythema moderate serosanguineous drainage present. Ostomy nurses to see and begin ostomy training. check CBC with diff and CMP again in a.m. tomorrow. (2) Marijuana abuse: Code(s): F12.10 - Cannabis abuse, uncomplicated Status: Acute Assessment and Plan: Patient denies anxiety although he is complaining about various small things in the room. Denies need for nicotine patch. States he does not smoke regular cigarettes but rather occasional cannabis (3) Peritonitis: Code(s): K65.9 - Peritonitis, unspecified Status: Acute Assessment and Plan: status post peritoneal washout. DAVID drain in place in the pelvis. Drainage is serous so once patient has good abdominal /bowel function probably will be able to remove this. Will continue antibiotics. (4) Obesity (BMI 30-39.9): Code(s): E66.9 - Obesity, unspecified Status: Acute Assessment and Plan: Resolved, BMI down to 28.5 (5) Hypertension: Code(s): I10 - Essential (primary) hypertension Status: Acute Assessment and Plan: Blood pressure still trending as high. He has p.r.n. hydralazine ordered. Whether it is just pain or if the patient who has previously known history of hypertension being recurrent is not yet known. Will treat with p.r.n. hydralazine if systolic goes above 160. Will monitor with serial checks. Will involve hospitalist today since medications appear to be needed. For now this will need to be IV but bowel function appears to be beginning to return so will be able to start some oral medications perhaps tomorrow. (6) Urinary retention: Code(s): R33.9 - Retention of urine, unspecified Status: Acute Assessment and Plan: Angulo catheter that had been in since surgery removed yesterday morning. Patient has had to be straight cath x2. The last time he did try for at least an hour to avoid even sitting at the bedside and standing. 750 cc obtained upon straight catheterization. If patient unable to void the next time will place catheter in again To gravity drainage and allow 24 hours of decompression before voiding trial again. Subjective Subjective Date/Time Seen: 03/23/22 07:52 Post Op day: 4 ( slow progress) Patient reports: flatus ( in ostomy bag) and no bowel movement Interval history: The patient states that he has been unable to void. Angulo catheter was removed about 10:00 a.m. yesterday. Twice he is needed to be straight cath with the return of 50o & 750 cc of urine. If he requires another straight cath will replace catheter and consider urology consultation. Review of Systems Review of Systems: All systems reviewed & are unremarkable except as noted in HPI and below Constitutional: Constitutional: Reports as per HPI, Denies chills and Denies fever(s) Cardiovascular: Cardiovascular: Denies chest pain and Denies dyspnea Respiratory:
[2022-03-23] MEDS: FAMOTIDINE 20 MG/2 ML VIAL IV PUSH ×2 (09:26→20:10)
[2022-03-23] MEDS: ENOXAPARIN 40 MG/0.4 ML SYRINGE SUB-Q (09:26)
[2022-03-23] MEDS: ONDANSETRON INJ 4 MG/2 ML VIAL IV PUSH ×3 (09:29→23:38)
[2022-03-23] MEDS: POTASSIUM CHLORIDE INJ 40 MEQ in SODIUM CHLORIDE 0.9% IV 500 ML 130 MEQ IVPB (11:05)
[2022-03-23] MEDS: MAGNESIUM HYDROXIDE SUSP 30 ML UDC FEED TUBE (20:04)
--- NOTE | 2022-03-23 20:30 | WPDCN ---
Assessment and Plan Assessment and plan (1) Perforation of sigmoid colon due to diverticulitis: Onset Date: 03/2022 Code(s): K57.20 - Diverticulitis of large intestine with perforation and abscess without bleeding Status: Acute Assessment and Plan: Status post exploratory laparotomy with open sigmoid colectomy with left-sided and colostomy. DAVID drain remains in place. Awaiting return of bowel function. (2) Peritonitis: Code(s): K65.9 - Peritonitis, unspecified Status: Acute Assessment and Plan: Status post peritoneal washout, on levofloxacin and metronidazole. DAVID drain remains in place. (3) Urinary retention: Code(s): R33.9 - Retention of urine, unspecified Status: Acute Assessment and Plan: Angulo catheter was removed but he has had to be straight cathed a couple of times today. Angulo may very well need to be reinserted and he will need a voiding trial prior to discharge. (4) Hypokalemia: Code(s): E87.6 - Hypokalemia Status: Acute Assessment and Plan: Potassium is being replaced and monitored. (5) Hyperglycemia: Code(s): R73.9 - Hyperglycemia, unspecified Status: Acute Assessment and Plan: Check hemoglobin A1c. (6) Hypertension: Code(s): I10 - Essential (primary) hypertension Status: Acute Assessment and Plan: Blood pressures have been running consistently high in the 150s to 160s over 90s to 100s. Hydralazine ordered p.r.n. Antihypertensives will need to be initiated once he is tolerating p.o.. Plan Thank you for allowing us to participate in this patient's care. Please do not hesitate to contact us with any questions. Supervising physician for this medical consultation is Dr. Dr. Kia Slaughter. HPI Data of Consult Date/Time: 03/09/22 20:30 Requesting Physician: Ricardo Casas MD Primary Care Provider: UNKNOWN,DOCTOR Consult Narrative Reason for consult: Hypertension Narrative: This is a 46-year-old male with history of hypertension (no longer on medication) whom the hospitalist service has been consulted for evaluation of postoperative hypertension. He was admitted through the emergency department on 03/17/2022 with perforated sigmoid colon diverticulitis after presenting with left lower quadrant abdominal pain for 3 days. He underwent emergent surgery several hours thereafter and is now postoperative day 3 status post exploratory laparotomy with peritoneal irrigation and open sigmoid colectomy with left-sided and colostomy. He remains on IV antibiotics and has a DAVID drain in place. We are still awaiting return of bowel function. His blood pressures have remained consistently high throughout his stay and despite much better pain control his blood pressures have been running in the 150s to 160s systolic over the 90s to low 100s diastolic. He is not having any symptoms of high blood pressure and he specifically denies headache, dizziness, flushed face, chest discomfort, and shortness of breath. He does not check his blood pressure at home or while out in the community. He was previously on lisinopril 10 milligrams daily but he has been off of it for about 3 years for unclear reasons. Review of Systems Review of Systems: Twelve systems were reviewed and are negative except for as per HPI. [facility] Past Medical History Medical History (Updated 03/24/22 @ 00:40 by Molly Shah PA-C) Hypertension was on lisinopril for a while but stopped about 3 years ago when his pressure became better Marijuana abuse Obesity (BMI 30-39.9) Perforation of sigmoid colon due to diverticulitis (03/2022) Urinary retention Surgical History Surgical History (Updated 03/24/22 @ 00:38 by Molly Shah PA-C) History of exploratory laparotomy (03/2022) History of hemorrhoidectomy History of laparoscopic cholecystectomy Status post Inés procedure (03/2022) Family History Fa
[2022-03-24] MEDS: MORPHINE SULFATE (*CRX) 2 MG/ML INJ IV PUSH ×4 (02:52→18:35)
[2022-03-24] MEDS: KCL 20 MEQ/D5/0.9% SOD CHL 1,000 ML 100 ML IV CONT ×2 (02:56→16:32)
[2022-03-24 02:57] VITALS: BP 156/98; PULSE 69; RESP 18; TEMP 36.6; O2SAT 96
[2022-03-24] MEDS: metroNIDAZOLE 500 MG/ISO 100ML 500 MG/100 ML BAG 100 MG IVPB ×3 (04:00→20:00)
[2022-03-24 06:35] LABS: Hematocrit 42.3 % (42.0-52.0); Hemoglobin 14.4 g/dL (14.0-18.0); Mean Corpuscular Hemoglobin 30.1 pg (26-34); Mean Corpuscular Volume 88.3 fl (80-100); Mean Platelet Volume 10.7 fl (7.4-10.4); Platelet Count Result 357 k/mm3 (150-375); Red Blood Count 4.79 M/mm3 (4.6-6.20); Red Cell Distribution Width 13.2 % (11.5-14.5); White Blood Count 18.4 K/mm3 (4.5-10.0)
[2022-03-24 06:49] LABS: Hemoglobin A1C 5.3 % (<5.7)
[2022-03-24 06:52] LABS: Alanine Aminotransferase 28 U/L (6-50); Albumin Level 3.1 g/dL (3.5-5.1); Alkaline Phosphatase 113 U/L (38-126); Anion Gap 8 mmol/L (8-16); Aspartate Amino Transferase 43 U/L (17-59); Bilirubin,Total 0.7 mg/dL (0.2-1.3); Blood Urea Nitrogen 11 mg/dL (9-20); Calcium 7.8 mg/dL (8.4-10.2); Carbon Dioxide 27 mmol/L (22-30); Chloride 99 mmol/L (98-107); Estimated CRCL calculation 155 ml/min; Estimated Glomerular Filt Rate > 60; Glucose 109 mg/dL (65-110); Magnesium 2.2 mg/dL (1.6-2.3); Potassium 3.5 mmol/L (3.4-5.0); Sodium 134 mmol/L (137-145)
--- NOTE | 2022-03-24 07:59 | PM.PNGS ---
Progress Note: A&P Assessment and Plan (1) Perforation of sigmoid colon due to diverticulitis: Onset Date: 03/2022 Code(s): K57.20 - Diverticulitis of large intestine with perforation and abscess without bleeding Status: Acute Assessment and Plan: This is the main reason for the patient's admission and his surgical intervention. Vital signs are stable. There is no signs of continuing peritonitis. However, it is noted that his white count popped back up to 18,000 today so will repeat in a.m. Ostomy appears to be red and this morning there was liquid brown stool in the bag. Will discontinue NG & suction and allow patient to try clear liquids. there now seems to be some return of bowel function. Continue IV fluids and IV antibiotics. Potassium up to normal today. since he will be able to take p.o. will start b.i.d. potassium tablets to keep this higher normal range. This should also help prevent recurrence of his ileus. Ostomy nurses to see and begin ostomy training. check CBC with diff again in a.m. tomorrow. (2) Marijuana abuse: Code(s): F12.10 - Cannabis abuse, uncomplicated Status: Acute Assessment and Plan: Patient denies anxiety although he is complaining about various small things in the room. Denies need for nicotine patch. States he does not smoke regular cigarettes but rather occasional cannabis (3) Peritonitis: Code(s): K65.9 - Peritonitis, unspecified Status: Acute Assessment and Plan: status post peritoneal washout. DAVID drain in place in the pelvis. Drainage is serous so once patient has good abdominal /bowel function probably will be able to remove this. Will continue antibiotics. (4) Obesity (BMI 30-39.9): Code(s): E66.9 - Obesity, unspecified Status: Acute Assessment and Plan: New weight in chart reveals new calculation of BMI at 34. Will continue to monitor. Patient should consider losing weight once he has recovered from this surgery. (5) Hypertension: Code(s): I10 - Essential (primary) hypertension Status: Acute Assessment and Plan: Blood pressure still trending as high. He has p.r.n. hydralazine ordered. Also, appreciate hospitalist's consultation. He should be able to start some oral medications today.. (6) Urinary retention: Code(s): R33.9 - Retention of urine, unspecified Status: Acute Assessment and Plan: Patient again tried to void yesterday but then with no success Angulo was placed to gravity. He had a reasonable urine output overnight. Will consult Urology to consider further therapy versus voiding trial & their recommendations. Subjective Subjective Date/Time Seen: 03/24/22 07:59 Post Op day: 5 ( ileus resolving) Patient reports: feels better and bowel movement ( liquid brown stool in ostomy bag) Interval history: The patient states he still feels weak but he did walk in the hallway with a walker last evening. Tolerated NG clamping some yesterday. Exam Const: General: alert and awake Orientation/consciousness: patient oriented x3 HENMT: Head: normal to inspection Eyes: Sclera: sclerae normal Pupils: Equal, round and reactive pupils present Neck: Neck: normal visual inspection and no JVD Chest: Chest palpation & inspection: normal inspection of the chest Resp: Effort & Inspection: normal respiratory effort Auscultation: clear to auscultation bilaterally Cardio: Rate: regular rate GI: Inspection: other ( DAVID drain right lower quadrant with approximately 20 cc out last 24 hours) GI Palp: Yes abdominal tenderness ( Near incision site) and Yes Other GI palpation findings present ( Softer than 2 days ago to palpation) Auscultation: normal bowel sounds Other: inspection of the ostomy reveals the mucosa appears to be dark red but flat with the skin level. Some Brown liquid stool in bag today Neuro: General: patient oriented x3 Cr
[2022-03-24 08:13] LABS: Band Neutrophils Percent 7 % (0-6); Eosinophils Absolute Manual 0.55 K/mm3 (0.02-0.5); Eosinophils Percent Manual 3 % (0-4); Lymphocytes Absolute Manual 5.52 K/mm3 (1.1-4.5); Lymphocytes Percent Manual 30 % (18-44); Monocytes Absolute Manual 2.02 K/mm3 (0.1-0.90); Monocytes Percent Manual 11 % (3-9); Neutrophils Percent Manual 49 % (46-73); Total Cells Counted 100
[2022-03-24 08:14] LABS: Atypical Lymphocytes Present; Platelet Estimate Adequate (Adequate); Schistocytes None Seen (NORMAL)
[2022-03-24] MEDS: ENOXAPARIN 40 MG/0.4 ML SYRINGE SUB-Q (08:23)
[2022-03-24] MEDS: FAMOTIDINE 20 MG/2 ML VIAL IV PUSH ×2 (08:23→20:00)
[2022-03-24] MEDS: ONDANSETRON INJ 4 MG/2 ML VIAL IV PUSH ×3 (09:48→22:21)
--- NOTE | 2022-03-24 11:25 | PM.IMPN ---
Progress Note: A&P Assessment and Plan (1) Perforation of sigmoid colon due to diverticulitis: Onset Date: 03/2022 Code(s): K57.20 - Diverticulitis of large intestine with perforation and abscess without bleeding Status: Acute Assessment and Plan: Status post exploratory laparotomy with open sigmoid colectomy with left-sided and colostomy. DAVID drain remains in place. Awaiting return of bowel function. per surgery. (2) Peritonitis: Code(s): K65.9 - Peritonitis, unspecified Status: Acute Assessment and Plan: Status post peritoneal washout, on levofloxacin and metronidazole. DAVID drain remains in place. (3) Urinary retention: Code(s): R33.9 - Retention of urine, unspecified Status: Acute Assessment and Plan: Catheter placed. Urology consult (4) Hypokalemia: Code(s): E87.6 - Hypokalemia Status: Acute Assessment and Plan: Potassium is being replaced and monitored. (5) Hyperglycemia: Code(s): R73.9 - Hyperglycemia, unspecified Status: Acute Assessment and Plan: Check hemoglobin A1c. (6) Hypertension: Code(s): I10 - Essential (primary) hypertension Status: Acute Assessment and Plan: Will start on carvedilol. Subjective Date/time seen: 03/24/22 11:25 Exam Const: Other: Mildly ill, nontoxic-appearing male supine in bed. Weight: 120 kilograms. BMI: 34.0. HENMT: Other: Normocephalic, atraumatic. NG tube in the right naris. Tacky mucous membranes. Eyes: Other: Pupils are reactive. Extraocular motions intact. Sclerae anicteric. Conjunctiva mildly injected. Neck: Other: Supple. Resp: Other: Respirations are nonlabored and lungs are clear to auscultation. Cardio: Other: Regular in rhythm with normal S1-S2. GI: Other: Abdomen is soft with hypoactive bowel sounds. Surgical dressing is clean, dry, and intact. DAVID drain in the right lower quadrant draining a small amount of blood. Ostomy in the left mid to lower quadrant with gas in the bag but no stool. Skin: Other: Warm and dry. Neuro: Other: Alert. Cranial nerves 2-12 are grossly intact. No gross focal deficits to casual conversation. Extrem: Other: No cyanosis, clubbing, or edema. Peripheral pulses intact. Psych: Other: Pleasant and cooperative. Appropriate mood and affect. Objective Data Vital Signs Vital Signs: Vital Signs - 24 hr 03/23/22 14:00 03/23/22 14:30 03/23/22 19:29 Temperature 96.0 F L 98.8 F Pulse Rate 70 74 Respiratory Rate 16 18 Blood Pressure 168/102 H 154/98 H 156/100 H Pulse Oximetry 98 99 Oxygen Delivery 03/23/22 22:11 03/23/22 20:00 03/24/22 02:57 Temperature 97.8 F Pulse Rate 74 69 Respiratory Rate 18 18 Blood Pressure 157/99 H 156/98 H Pulse Oximetry 99 96 Oxygen Delivery Room Air 03/24/22 08:00 Temperature Pulse Rate Respiratory Rate Blood Pressure Pulse Oximetry Oxygen Delivery Room Air Intake/Output Intake/Output: Intake & Output 03/21/22 03/22/22 03/23/22 03/24/22 23:59 23:59 23:59 23:59 Intake Total 3500 2970 3460 860 Output Total 2560 2620 3475 1125 Balance 940 350 15 -265 Meds/Results Medications: Active Medications Generic Name Dose Route Start Last Admin Trade Name Freq PRN Reason Stop Dose Admin Acetaminophen 500 mg 03/20/22 01:41 Acetaminophen 500 Mg Tablet PO Q6H PRN Mild Pain (1-3) or Fever Hydrocodone Bitart/Acetaminophen 1 tab 03/20/22 01:41 Hydrocodone/Acetaminophen (*Crx) 7.5-325 Mg Tablet PO Q4H PRN Pain Rated 7-10 Enoxaparin Sodium 40 mg 03/20/22 09:00 03/24/22 08:23 Enoxaparin 40 Mg/0.4 Ml Syringe SUB-Q 40 mg DAILY CECE Administration Famotidine 20 mg 03/20/22 09:00 03/24/22 08:23 Famotidine 20 Mg/2 Ml Vial IV PUSH 20 mg Q12HR CECE Administration Hydralazine HCl 10 mg 03/24/22 00:44 Hydralazine Hcl 20 Mg/Ml Vial IV PUSH
[2022-03-24] MEDS: POTASSIUM CHLORIDE 20 MEQ TABLET.ER PO (12:13)
[2022-03-24] MEDS: MORPHINE SULFATE (*CRX) 4 MG/ML INJ IV PUSH (12:17)
[2022-03-24 14:00] VITALS: BP 168/104; PULSE 70; RESP 18; TEMP 36.8; O2SAT 98
[2022-03-24] MEDS: MAGNESIUM HYDROXIDE SUSP 30 ML UDC FEED TUBE (14:22)
[2022-03-24] MEDS: hydrALAZINE HCL 20 MG/ML VIAL 10 MG IV PUSH (14:22)
--- NOTE | 2022-03-24 16:03 | WPDURCON ---
Assessment and Plan Assessment and plan (1) Urinary retention: Code(s): R33.9 - Retention of urine, unspecified Status: Acute Assessment and Plan: Start Tamsulosin, keep spear in place for 7-10 days and will plan a voiding trial in the office. NO further evaluation needed at this time. We also discussed the need for a Urodynamics test d/t lifelong difficulty urinating. Urology Consult Note HPI Date Seen: 03/24/22 Time Seen: 12:30 Requesting Physician: Ricardo Casas MD Primary Care Provider: UNKNOWN,DOCTOR Consult Narrative Reason for consult: Retention Narrative: Bernard Enamorado is a 46 year old male who is s/p Blackmon's procedure (open sigmoid colectomy with left sided end colostomy) on 03/20/22 with general surgery. He had difficulty emptying his bladder afterward and was being straight catheterized with elevated residuals, therefore a catheter was placed. He states he has had difficulty urinating his whole life. Specifically with hesitating, straining and difficulty getting his stream started. He denies frequency, urgency or incontinence. He also denies frequent UTI's or feeling of incomplete emptying. He has had a spear before after another surgery about 10 years ago. He has never seen a urologist and has not had this problem evaluated. His creatinine is 0.70, WBC is 18.4. UA is suggestive of a UTI. Review of Systems Cardiovascular: Cardiovascular: Denies chest pain Respiratory: Respiratory: Reports no additional respiratory complaints Gastrointestinal: Gastrointestinal: Reports abdominal pain, Denies nausea and Denies vomiting Genitourinary: Genitourinary: Denies hematuria, Denies dysuria, Denies flank pain, Denies urinary frequency, Reports urinary hesitancy, Denies urinary incontinence and Denies urinary urgency [facility] Past Medical History Medical History Hypertension was on lisinopril for a while but stopped about 3 years ago when his pressure became better Marijuana abuse Obesity (BMI 30-39.9) Perforation of sigmoid colon due to diverticulitis (03/2022) Urinary retention Surgical History Surgical History History of exploratory laparotomy (03/2022) History of hemorrhoidectomy History of laparoscopic cholecystectomy Status post Inés procedure (03/2022) Family History Family History Father Carcinoma of colon Mother Family history of lung cancer Other Family history of allergic disorder Hypertension Social History Social History Social History: Code status: Full code. Smoking packs per day: 1 Smoking cigarettes per day: 20.0 Years smoked: 20 Smoking pack-years: 20.00 Smoking status: Former smoker Additional smoking assessment comments: Quit about 10 years ago. 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 Spiritual care concerns: No Meds Home Medications and Allergies Home Medications Medication Instructions Recorded Confirmed Type No Home Medications 03/19/22 03/22/22 History Allergies Allergy/AdvReac Type Severity Reaction Status Date / Time codeine Allergy Unknown Itching Verified 03/19/22 17:09 Penicillins Allergy Unknown Unknown Verified 03/19/22 17:08 CODE Allergy Unknown ITCHING Uncoded 03/19/22 15:38 Vital Signs Vital Signs - 24 hr 03/23/22 19:29 03/23/22 22:11 03/23/22 20:00 Temperature 98.8 F Pulse Rate 74 74 R
[2022-03-24] MEDS: HYDROcodone/acetaminophen (*CRX) 7.5-325 MG TABLET 1 TAB PO ×2 (16:32→22:18)
[2022-03-24 16:47] VITALS: BP 156/102
[2022-03-24 17:06] VITALS: PULSE 70
[2022-03-24] MEDS: carvediloL 3.125 MG TABLET PO (17:06)
--- NOTE | 2022-03-24 17:28 | PC.NURSE ---
sister Harmony updated on pt condition and plan of care by phone per pt request
[2022-03-24 20:00] VITALS: PULSE 70; RESP 18; O2SAT 98
[2022-03-24 22:00] VITALS: BP 150/99; PULSE 69; RESP 18; TEMP 36.5; O2SAT 97
[2022-03-25] MEDS: HYDROcodone/acetaminophen (*CRX) 7.5-325 MG TABLET 1 TAB PO ×5 (01:57→21:30)
--- NOTE | 2022-03-25 02:09 | PC.NURSE ---
Pt requested to walk one lap around the unit. Pt walked with walker and this RN for 1 lap. Pt tolerated it well.
[2022-03-25] MEDS: metroNIDAZOLE 500 MG/ISO 100ML 500 MG/100 ML BAG 100 MG IVPB ×3 (03:38→20:17)
[2022-03-25] MEDS: KCL 20 MEQ/D5/0.9% SOD CHL 1,000 ML 100 ML IV CONT (03:38)
[2022-03-25] MEDS: ACETAMINOPHEN 500 MG TABLET PO (03:38)
[2022-03-25 06:00] VITALS: BP 145/92; PULSE 65; RESP 20; TEMP 36.6; O2SAT 99
[2022-03-25 07:01] LABS: Hematocrit 42.5 % (42.0-52.0); Hemoglobin 14.2 g/dL (14.0-18.0); Mean Corpuscular HGB Conc 33.4 g/dl (32-36); Mean Corpuscular Hemoglobin 30.7 pg (26-34); Mean Corpuscular Volume 91.8 fl (80-100); Mean Platelet Volume 10.6 fl (7.4-10.4); Platelet Count Result 341 k/mm3 (150-375); Red Blood Count 4.63 M/mm3 (4.6-6.20); Red Cell Distribution Width 13.3 % (11.5-14.5); White Blood Count 18.1 K/mm3 (4.5-10.0)
[2022-03-25] MEDS: ONDANSETRON INJ 4 MG/2 ML VIAL IV PUSH ×2 (09:05→14:39)
[2022-03-25 09:07] VITALS: PULSE 74
[2022-03-25] MEDS: ENOXAPARIN 40 MG/0.4 ML SYRINGE SUB-Q (09:07)
[2022-03-25] MEDS: FAMOTIDINE 20 MG/2 ML VIAL IV PUSH ×2 (09:07→20:17)
[2022-03-25] MEDS: POTASSIUM CHLORIDE 20 MEQ TABLET.ER PO (09:07)
[2022-03-25] MEDS: carvediloL 3.125 MG TABLET PO ×2 (09:07→20:17)
[2022-03-25] MEDS: TAMSULOSIN HCL 0.4 MG CAPSULE PO (09:08)
[2022-03-25 09:10] LABS: Band Neutrophils Percent 6 % (0-6); Basophils Absolute Manual 0.18 K/mm3 (0.0-0.1); Basophils Percent Manual 1 % (0-1); Eosinophils Absolute Manual 1.08 K/mm3 (0.02-0.5); Eosinophils Percent Manual 6 % (0-4); Lymphocytes Absolute Manual 3.98 K/mm3 (1.1-4.5); Metamyelocytes Percent 4 %; Monocytes Absolute Manual 1.26 K/mm3 (0.1-0.90); Monocytes Percent Manual 7 % (3-9); Neutrophils Absolute Manual 10.86 K/mm3 (1.3-6.7); Neutrophils Percent Manual 54 % (46-73); Platelet Estimate Adequate (Adequate); Schistocytes None Seen (NORMAL); Total Cells Counted 100
[2022-03-25 09:11] LABS: Atypical Lymphocytes Present
--- NOTE | 2022-03-25 09:17 | PM.PNGS ---
Progress Note: A&P Assessment and Plan (1) Perforation of sigmoid colon due to diverticulitis: Onset Date: 03/2022 Code(s): K57.20 - Diverticulitis of large intestine with perforation and abscess without bleeding Status: Acute Assessment and Plan: This is the main reason for the patient's admission and his surgical intervention. Vital signs are stable. There is no signs of continuing peritonitis. However, it is noted that his white count popped back up to 18,000 today so will repeat in a.m. Ostomy appears to be red and this morning there was liquid brown stool in the bag. Will discontinue NG & suction and allow patient to try clear liquids. there now seems to be some return of bowel function. Continue IV fluids and IV antibiotics. Potassium up to normal today. since he will be able to take p.o. will start b.i.d. potassium tablets to keep this higher normal range. This should also help prevent recurrence of his ileus. Ostomy nurses to see and begin ostomy training. check CBC with diff again tomorrow. (2) Marijuana abuse: Code(s): F12.10 - Cannabis abuse, uncomplicated Status: Acute Assessment and Plan: Patient denies anxiety although he is complaining about various small things in the room. Denies need for nicotine patch. States he does not smoke regular cigarettes but rather occasional cannabis (3) Peritonitis: Code(s): K65.9 - Peritonitis, unspecified Status: Acute Assessment and Plan: status post peritoneal washout. DAVID drain in place in the pelvis. Drainage is serous so once patient has good abdominal /bowel function probably will be able to remove this. Will continue antibiotics. (4) Obesity (BMI 30-39.9): Code(s): E66.9 - Obesity, unspecified Status: Acute Assessment and Plan: New weight in chart reveals new calculation of BMI at 34. Will continue to monitor. Patient should consider losing weight once he has recovered from this surgery. (5) Hypertension: Code(s): I10 - Essential (primary) hypertension Status: Acute Assessment and Plan: Blood pressure still trending as high. He has p.r.n. hydralazine ordered. Also, appreciate hospitalist's consultation. He has started oral medications. (6) Urinary retention: Code(s): R33.9 - Retention of urine, unspecified Status: Acute Assessment and Plan: Patient again tried to void yesterday but then with no success Angulo was placed to gravity. He had a reasonable urine output overnight. Will consult Urology to consider further therapy versus voiding trial & their recommendations. Subjective Subjective Date/Time Seen: 03/25/22 09:17 Post Op day: POD #6 Patient reports: no new complaints, still having pain ( Mainly incisional), flatus and bowel movement ( into ostomy bag) Review of Systems Review of Systems: All systems reviewed & are unremarkable except as noted in HPI and below Constitutional: Constitutional: Reports as per HPI, Denies chills and Denies fever(s) Cardiovascular: Cardiovascular: Denies chest pain and Denies dyspnea Respiratory: Respiratory: Reports no additional respiratory complaints and Denies dyspnea Gastrointestinal: Gastrointestinal: Reports as per HPI and Denies bloating Genitourinary: Comments: Patient reports he has always had difficulty urinating when not in private. Usually has no trouble with flow or getting urine started while at home or in a private situation. However, ever since the child has not been able to urinate next to someone else at the urinal or at sporting events. Musculoskeletal: Musculoskeletal: Reports no additional musculoskeletal complaints Neurologic: Denies memory loss Psychiatric: Psychiatric: Denies memory loss Exam Const: General: alert and awake Orientation/consciousness: patient oriented x3 HENMT: Head: normal to inspection Eyes: Sclera: sclerae brenda
--- NOTE | 2022-03-25 10:45 | PM.IMPN ---
Progress Note: A&P Assessment and Plan (1) Perforation of sigmoid colon due to diverticulitis: Onset Date: 03/2022 Code(s): K57.20 - Diverticulitis of large intestine with perforation and abscess without bleeding Status: Acute Assessment and Plan: Status post exploratory laparotomy with open sigmoid colectomy with left-sided and colostomy. DAVID drain remains in place. Awaiting return of bowel function. per surgery. (2) Peritonitis: Code(s): K65.9 - Peritonitis, unspecified Status: Acute Assessment and Plan: Status post peritoneal washout, on levofloxacin and metronidazole. DAVID drain remains in place. (3) Urinary retention: Code(s): R33.9 - Retention of urine, unspecified Status: Acute Assessment and Plan: Catheter placed. Urology consult (4) Hypokalemia: Code(s): E87.6 - Hypokalemia Status: Acute Assessment and Plan: Potassium is being replaced and monitored. (5) Hyperglycemia: Code(s): R73.9 - Hyperglycemia, unspecified Status: Acute Assessment and Plan: Check hemoglobin A1c. (6) Hypertension: Code(s): I10 - Essential (primary) hypertension Status: Acute Assessment and Plan: Will start on carvedilol. Subjective Date/time seen: 03/25/22 10:45 pain is improved Exam Const: Other: Mildly ill, nontoxic-appearing male supine in bed. Weight: 120 kilograms. BMI: 34.0. HENMT: Other: Normocephalic, atraumatic. NG tube in the right naris. Tacky mucous membranes. Eyes: Other: Pupils are reactive. Extraocular motions intact. Sclerae anicteric. Conjunctiva mildly injected. Neck: Other: Supple. Resp: Other: Respirations are nonlabored and lungs are clear to auscultation. Cardio: Other: Regular in rhythm with normal S1-S2. GI: Other: Abdomen is soft with hypoactive bowel sounds. Surgical dressing is clean, dry, and intact. DAVID drain in the right lower quadrant draining a small amount of blood. Ostomy in the left mid to lower quadrant with gas in the bag but no stool. Skin: Other: Warm and dry. Neuro: Other: Alert. Cranial nerves 2-12 are grossly intact. No gross focal deficits to casual conversation. Extrem: Other: No cyanosis, clubbing, or edema. Peripheral pulses intact. Psych: Other: Pleasant and cooperative. Appropriate mood and affect. Objective Data Vital Signs Vital Signs: Vital Signs - 24 hr 03/24/22 14:00 03/24/22 16:47 03/24/22 17:06 Temperature 98.2 F Pulse Rate 70 70 Respiratory Rate 18 Blood Pressure 168/104 H 156/102 H Pulse Oximetry 98 Oxygen Delivery 03/24/22 20:00 03/24/22 22:00 03/25/22 06:00 Temperature 97.7 F 97.8 F Pulse Rate 70 69 65 Respiratory Rate 18 18 20 Blood Pressure 150/99 H 145/92 H Pulse Oximetry 98 97 99 Oxygen Delivery Room Air 03/25/22 09:07 Temperature Pulse Rate 74 Respiratory Rate Blood Pressure Pulse Oximetry Oxygen Delivery Intake/Output Intake/Output: Intake & Output 03/22/22 03/23/22 03/24/22 03/25/22 23:59 23:59 23:59 23:59 Intake Total 2970 3460 3160 1620 Output Total 2620 3475 2942 1915 Balance 350 -15 218 -295 Meds/Results Medications: Active Medications Generic Name Dose Route Start Last Admin Trade Name Freq PRN Reason Stop Dose Admin Acetaminophen 500 mg 03/20/22 01:41 03/25/22 03:38 Acetaminophen 500 Mg Tablet PO 500 mg Q6H PRN Administration Mild Pain (1-3) or Fever Hydrocodone Bitart/Acetaminophen 1 tab 03/20/22 01:41 03/25/22 09:10 Hydrocodone/Acetaminophen (*Crx) 7.5-325 Mg Tablet PO 1 tab Q4H PRN Administration Pain Rated 7-10 Carvedilol 3.125 mg 03/24/22 21:00 03/25/22 09:07 Carvedilol 3.125 Mg Tablet PO 3.125 mg Q12HR CECE Administration Enoxaparin Sodium 40 mg 03/20/22 09:00 03/25/22 09:07 Enoxaparin 40 Mg/0.4 Ml Syringe SUB-Q 40 mg DAILY CECE Administration Famotidi
[2022-03-25 14:00] VITALS: BP 167/104; PULSE 60; RESP 18; TEMP 36.1; O2SAT 97
[2022-03-25 19:56] VITALS: O2SAT 97
[2022-03-25 20:17] VITALS: PULSE 62
[2022-03-25 22:59] VITALS: BP 165/98; PULSE 65; RESP 20; TEMP 36.1; O2SAT 98
[2022-03-26] MEDS: metroNIDAZOLE 500 MG/ISO 100ML 500 MG/100 ML BAG 100 MG IVPB (03:01)
[2022-03-26 06:00] VITALS: BP 149/94; PULSE 67; RESP 20; TEMP 36.5; O2SAT 98
[2022-03-26] MEDS: TAMSULOSIN HCL 0.4 MG CAPSULE PO (08:40)
[2022-03-26] MEDS: POTASSIUM CHLORIDE 20 MEQ TABLET.ER PO (08:40)
[2022-03-26] MEDS: ENOXAPARIN 40 MG/0.4 ML SYRINGE SUB-Q (08:40)
[2022-03-26] MEDS: FAMOTIDINE 20 MG/2 ML VIAL IV PUSH (08:40)
[2022-03-26] MEDS: ACETAMINOPHEN 500 MG TABLET PO (08:46)
[2022-03-26 08:51] VITALS: PULSE 84
[2022-03-26] MEDS: carvediloL 6.25 MG TABLET PO (08:51)
--- NOTE | 2022-03-26 11:09 | PCDIET ---
Brief nutrition note: Pt asked to see dietitian as MD ordered 2g sodium diet. Materials given. Discussed low sodium diet and previous diet education for low fiber diet for 2 weeks then advancing to high fiber diet. All questions answered. Pt said he asked his fiance to buy him low sodium soups for when he gets home. Verbalizes understanding.
[2022-03-26 11:13] LABS: Hematocrit 44.2 % (42.0-52.0); Hemoglobin 15.1 g/dL (14.0-18.0); Mean Corpuscular HGB Conc 34.2 g/dl (32-36); Mean Corpuscular Hemoglobin 30.6 pg (26-34); Mean Corpuscular Volume 89.5 fl (80-100); Mean Platelet Volume 10.5 fl (7.4-10.4); Platelet Count Result 354 k/mm3 (150-375); Red Blood Count 4.94 M/mm3 (4.6-6.20); Red Cell Distribution Width 13.1 % (11.5-14.5); White Blood Count 17.5 K/mm3 (4.5-10.0)
--- NOTE | 2022-03-26 11:31 | PM.IMPN ---
Progress Note: A&P Assessment and Plan (1) Perforation of sigmoid colon due to diverticulitis: Onset Date: 03/2022 Code(s): K57.20 - Diverticulitis of large intestine with perforation and abscess without bleeding Status: Acute Assessment and Plan: improved Antibiotics per surgery (2) Peritonitis: Code(s): K65.9 - Peritonitis, unspecified Status: Acute Assessment and Plan: improved will need follow-up with surgery. Antibiotics per surgery as well. (3) Urinary retention: Code(s): R33.9 - Retention of urine, unspecified Status: Acute Assessment and Plan: Catheter placed. Urology consult (4) Hypokalemia: Code(s): E87.6 - Hypokalemia Status: Acute Assessment and Plan: Potassium is being replaced and monitored. (5) Hyperglycemia: Code(s): R73.9 - Hyperglycemia, unspecified Status: Acute Assessment and Plan: Check hemoglobin A1c. (6) Hypertension: Code(s): I10 - Essential (primary) hypertension Status: Acute Assessment and Plan: Will start on carvedilol. Subjective Date/time seen: 03/26/22 11:31 feeling better Exam Const: Other: Mildly ill, nontoxic-appearing male supine in bed. Weight: 120 kilograms. BMI: 34.0. HENMT: Other: Normocephalic, atraumatic. NG tube in the right naris. Tacky mucous membranes. Eyes: Other: Pupils are reactive. Extraocular motions intact. Sclerae anicteric. Conjunctiva mildly injected. Neck: Other: Supple. Resp: Other: Respirations are nonlabored and lungs are clear to auscultation. Cardio: Other: Regular in rhythm with normal S1-S2. GI: Other: Abdomen is soft with hypoactive bowel sounds. Surgical dressing is clean, dry, and intact. DAVID drain in the right lower quadrant draining a small amount of blood. Ostomy in the left mid to lower quadrant with gas in the bag but no stool. Skin: Other: Warm and dry. Neuro: Other: Alert. Cranial nerves 2-12 are grossly intact. No gross focal deficits to casual conversation. Extrem: Other: No cyanosis, clubbing, or edema. Peripheral pulses intact. Psych: Other: Pleasant and cooperative. Appropriate mood and affect. Objective Data Vital Signs Vital Signs: Vital Signs - 24 hr 03/25/22 14:00 03/25/22 19:56 03/25/22 20:17 Temperature 96.9 F L Pulse Rate 60 62 Respiratory Rate 18 Blood Pressure 167/104 H Pulse Oximetry 97 97 Oxygen Delivery Room Air 03/25/22 22:59 03/26/22 06:00 03/26/22 08:51 Temperature 97.0 F L 97.7 F Pulse Rate 65 67 84 Respiratory Rate 20 20 Blood Pressure 165/98 H 149/94 H Pulse Oximetry 98 98 Oxygen Delivery 03/26/22 10:10 Temperature Pulse Rate Respiratory Rate Blood Pressure Pulse Oximetry Oxygen Delivery Room Air Intake/Output Intake/Output: Intake & Output 03/23/22 03/24/22 03/25/22 03/26/22 23:59 23:59 23:59 23:59 Intake Total 3460 3160 3270 220 Output Total 3475 2942 4020 1200 Balance -15 087 -052 -161 Meds/Results Medications: Active Medications Generic Name Dose Route Start Last Admin Trade Name Freq PRN Reason Stop Dose Admin Acetaminophen 1,000 mg 03/26/22 10:10 Acetaminophen 500 Mg Tablet PO Q6H PRN Mild Pain (1-3) or Fever Hydrocodone Bitart/Acetaminophen 1 tab 03/20/22 01:41 03/25/22 21:30 Hydrocodone/Acetaminophen (*Crx) 7.5-325 Mg Tablet PO 1 tab Q4H PRN Administration Pain Rated 7-10 Carvedilol 6.25 mg 03/26/22 09:00 03/26/22 08:51 Carvedilol 6.25 Mg Tablet PO 6.25 mg Q12HR CECE Administration Enoxaparin Sodium 40 mg 03/20/22 09:00 03/26/22 08:40 Enoxaparin 40 Mg/0.4 Ml Syringe SUB-Q 40 mg DAILY CECE Administration Famotidine 20 mg 03/26/22 21:00 Famotidine 20 Mg Tablet PO Q12HR [facility] Hydralazine HCl 10 mg 03/24/22 00:44 03/24/22 14:22 Hydralazine Hcl 20 Mg/Ml Vial IV PUSH 10 mg Q6H PRN
[2022-03-26 11:37] LABS: Band Neutrophils Percent 4 % (0-6); Basophils Absolute Manual 0.17 K/mm3 (0.0-0.1); Basophils Percent Manual 1 % (0-1); Eosinophils Absolute Manual 0.52 K/mm3 (0.02-0.5); Eosinophils Percent Manual 3 % (0-4); Lymphocytes Absolute Manual 3.15 K/mm3 (1.1-4.5); Metamyelocytes Percent 1 %; Monocytes Percent Manual 8 % (3-9); Neutrophils Absolute Manual 12.07 K/mm3 (1.3-6.7); Neutrophils Percent Manual 65 % (46-73); Total Cells Counted 100
[2022-03-26 11:40] LABS: Atypical Lymphocytes Present; Hypochromasia 1+ (NORMAL); Schistocytes None Seen (NORMAL)
[2022-03-26] MEDS: metroNIDAZOLE 250 MG TABLET 500 MG PO (13:19)
[2022-03-26 14:00] VITALS: BP 117/77; PULSE 69; RESP 16; TEMP 36.9; O2SAT 98
[2022-03-26 14:34] LABS: Alanine Aminotransferase 40 U/L (6-50); Albumin Level 3.4 g/dL (3.5-5.1); Alkaline Phosphatase 109 U/L (38-126); Anion Gap 8 mmol/L (8-16); Aspartate Amino Transferase 45 U/L (17-59); Bilirubin,Total 0.4 mg/dL (0.2-1.3); Blood Urea Nitrogen 11 mg/dL (9-20); Calcium 8.5 mg/dL (8.4-10.2); Carbon Dioxide 27 mmol/L (22-30); Chloride 94 mmol/L (98-107); Estimated CRCL calculation 136 ml/min; Estimated Glomerular Filt Rate > 60; Glucose 123 mg/dL (65-110); Potassium 4.1 mmol/L (3.4-5.0); Sodium 129 mmol/L (137-145)
[2022-03-26] MEDS: ACETAMINOPHEN 500 MG TABLET 1000 MG PO (15:41)
[2022-03-26] MEDS: cefTRIAXone 2 GM in SODIUM CHLORIDE 0.9% IV 100 ML 200 ML IVPB (15:47)
--- NOTE | 2022-03-26 17:34 | PM.DS ---
DS: Admitting Diagnosis Discharge Date 03/26/2022 Admitting Diagnosis perforated sigmoid diverticulitis with peritonitis DS: Discharge Diagnosis Discharge Diagnosis (1) Perforation of sigmoid colon due to diverticulitis: Onset Date: 03/2022 Code(s): K57.20 - Diverticulitis of large intestine with perforation and abscess without bleeding Status: Acute Assessment and Plan: This was the main reason for his admission. He underwent emergency surgery for peritoneal washout and Inés's procedure. He has had a slow recovery due to ileus secondary to his peritonitis. Otherwise he has gradually improved. White count on discharge is still somewhat elevated 17,000 so patient needs 1 more week of oral antibiotics to be Levaquin and Flagyl. Apparently for some reason Levaquin was being stopped the day of discharge. ( 03/30 -- discussed with Dr. Talavera and this was for antibiotics Stewardship reasons -- patient did go home apparently on the Cardioval) ---- Perhaps this was because of the high hypertensive ordered having interaction. The patient is allergic to penicillin so there isn't much else to send him home on orally. Please adjust the oral antihypertensive something compatible. (2) Urinary retention: Code(s): R33.9 - Retention of urine, unspecified Status: Acute Assessment and Plan: Patient has been seen by Urology. Appreciate their input Patient will go home with a catheter in follow-up in the urology office in approximately 7-10 days for a bladder check after being on Flomax. (3) Peritonitis: Code(s): K65.9 - Peritonitis, unspecified Status: Acute Assessment and Plan: See under 1. Above. No cultures done because it was colon perforation which is known to be both aerobic and anaerobic. (4) Hypertension: Code(s): I10 - Essential (primary) hypertension Status: Acute Assessment and Plan: Appreciate hospitalist's consultation when blood pressure did not come down as pain resolved. Patient started on oral antihypertensive Cardioval (5) Marijuana abuse: Code(s): F12.10 - Cannabis abuse, uncomplicated Status: Acute Assessment and Plan: encouraged patient to discontinue smoking this. (6) Obesity (BMI 30-39.9): Code(s): E66.9 - Obesity, unspecified Status: Acute Assessment and Plan: patient will be on a low-sodium low-fiber soft diet at home until he sees me in the office (7) Hypokalemia: Code(s): E87.6 - Hypokalemia Status: Acute Assessment and Plan: current antihypertensive apparently does not cause potassium wasting so will not send patient home on supplement less they need to change to something different. Most recent potassium and normal levels. DS: Summary Hospital Course Reason for hospitalization: Peritonitis secondary to perforation of sigmoid diverticulitis Hospital Course: this was the main reason for his admission. He underwent emergency surgery for peritoneal washout and Inés's procedure. He has had a slow recovery due to ileus secondary to his peritonitis. Otherwise he has gradually improved. White count on discharge is still somewhat elevated 17,000 so patient needs 1 more week of oral antibiotics to be Levaquin and Flagyl. Apparently for some reason Levaquin was being stopped the day of discharge. Perhaps this was because of the high hypertensive ordered having interaction. The patient is allergic to penicillin so there isn't much else to send him home on orally. Please adjust the oral antihypertensive something compatible. Status at Discharge Cognitive/behavioral status at discharge: normal Functional status at discharge: independent ambulation ( still moving slow but does not appear to be a fall risk.) Overall status at discharge: patient is not back to baseline ( will need 6-8 weeks to heal completely for heavier work.) Time Spent with Patient Time att
== END 2022-03-26 19:10 | disposition home health service (06) | DRG 231 ==
LOC: ANHED 20:10 → ANHSURGERY 21:40 → ANH3MEDSUR 03-22 15:51
PROVIDERS: General Practice; Physician Assistant; Admitting Provider Surgery; Emergency Provider Emergency Medicine; Visit Provider Surgery
PROC: (CPT 49000; principal; 2022-03-19 22:30)
DX: K57.20 Diverticulitis of large intestine with perforation and abscess without bleeding (principal); K65.0 Generalized (acute) peritonitis; I10 Essential (primary) hypertension; K56.7 Ileus, unspecified; E87.6 Hypokalemia; R33.9 Retention of urine, unspecified; R73.9 Hyperglycemia, unspecified; F12.10 Cannabis abuse, uncomplicated; Z20.822 Contact with and (suspected) exposure to COVID-19; Z80.0 Family history of malignant neoplasm of digestive organs; Z90.49 Acquired absence of other specified parts of digestive tract
CPT/HCPCS: 36415; 74177; 80048; 80053; 81001; 83036; 83690; 83735; 85025; 87040; 88307; 93005; 96361; 96365; 96367; 96375; 96376; 99285; A9270; J0131; J0330; J0360; J0696; J0744; J1100; J1170; J1650; J1956; J2250; J2270; J2405; J2704; J2710; J3010; J3480; J7030; J7040; J7120; Q9967; U0003; U0005

== ENCOUNTER 2022-03-29 13:21 | Outpatient (NON) | payer OTHER, SELFPAY ==
[2022-03-29 13:54] LABS: Basophils Absolute Auto 0.1 K/mm3 (0.0-0.1); Basophils Percent Auto 0.8 % (0.2-1.2); Eosinophils Absolute Auto 0.2 K/mm3 (0-0.3); Eosinophils Percent Auto 1.3 % (0-4.4); Hematocrit 45.1 % (42.0-52.0); Hemoglobin 15.3 g/dL (14.0-18.0); Immature Granulocyte Percent A 2.8 % (0-0.5); Lymphocytes Absolute Auto 3.31 K/mm3 (0.9-3.2); Lymphocytes Percent Auto 18.4 % (18.3-44.2); Mean Corpuscular HGB Conc 33.9 g/dl (32-36); Mean Corpuscular Hemoglobin 30.4 pg (26-34); Mean Corpuscular Volume 89.7 fl (80-100); Monocytes Absolute Auto 1.6 K/mm3 (0.1-0.6); Neutrophils Absolute Auto 12.2 K/mm3 (1.3-6.7); Neutrophils Percent Auto 67.7 % (45.5-73.1); Platelet Count Result 407 k/mm3 (150-375); Red Blood Count 5.03 M/mm3 (4.6-6.20); Red Cell Distribution Width 13.2 % (11.5-14.5)
== END 2022-03-29 13:22 | disposition home or self-care (01) ==
PROVIDERS: Visit Provider Surgery
DX: K57.20 Diverticulitis of large intestine with perforation and abscess without bleeding (principal)
CPT/HCPCS: 36415; 85025

== ENCOUNTER 2022-04-05 11:47 | Outpatient (NON) | payer OTHER, SELFPAY ==
[2022-04-05 12:37] LABS: Basophils Absolute Auto 0.1 K/mm3 (0.0-0.1); Basophils Percent Auto 0.8 % (0.2-1.2); Eosinophils Absolute Auto 0.2 K/mm3 (0-0.3); Eosinophils Percent Auto 1.5 % (0-4.4); Hematocrit 43.7 % (42.0-52.0); Hemoglobin 14.5 g/dL (14.0-18.0); Immature Granulocyte Absolute 0.08 K/mm3 (0.00-0.031); Immature Granulocyte Percent A 0.7 % (0-0.5); Lymphocytes Absolute Auto 2.72 K/mm3 (0.9-3.2); Lymphocytes Percent Auto 23.3 % (18.3-44.2); Mean Corpuscular HGB Conc 33.2 g/dl (32-36); Mean Corpuscular Hemoglobin 30.3 pg (26-34); Mean Corpuscular Volume 91.2 fl (80-100); Monocytes Absolute Auto 1.3 K/mm3 (0.1-0.6); Monocytes Percent Auto 10.8 % (2.6-8.5); Neutrophils Absolute Auto 7.3 K/mm3 (1.3-6.7); Neutrophils Percent Auto 62.9 % (45.5-73.1); Platelet Count Result 556 k/mm3 (150-375); Red Blood Count 4.79 M/mm3 (4.6-6.20); Red Cell Distribution Width 13.3 % (11.5-14.5); White Blood Count 11.7 K/mm3 (4.5-10.0)
== END 2022-04-05 11:48 | disposition home or self-care (01) ==
LOC: HOME HLTH 11:50
PROVIDERS: Visit Provider Surgery
DX: R33.9 Retention of urine, unspecified (principal); I10 Essential (primary) hypertension; Z48.815 Encounter for surgical aftercare following surgery on the digestive system; Z46.6 Encounter for fitting and adjustment of urinary device
CPT/HCPCS: 85025

== ENCOUNTER 2022-04-28 15:48 | Outpatient (CLI) | payer OTHER, SELFPAY ==
[2022-04-28 16:14] LABS: Basophils Absolute Auto 0.1 K/mm3 (0.0-0.1); Basophils Percent Auto 1.1 % (0.2-1.2); Eosinophils Absolute Auto 0.3 K/mm3 (0-0.3); Eosinophils Percent Auto 2.6 % (0-4.4); Hematocrit 45.8 % (42.0-52.0); Immature Granulocyte Percent A 0.9 % (0-0.5); Lymphocytes Absolute Auto 3.93 K/mm3 (0.9-3.2); Lymphocytes Percent Auto 34.6 % (18.3-44.2); Mean Corpuscular HGB Conc 32.8 g/dl (32-36); Mean Corpuscular Hemoglobin 28.8 pg (26-34); Mean Corpuscular Volume 87.9 fl (80-100); Mean Platelet Volume 10.1 fl (7.4-10.4); Monocytes Absolute Auto 1.1 K/mm3 (0.1-0.6); Monocytes Percent Auto 9.5 % (2.6-8.5); Neutrophils Absolute Auto 5.8 K/mm3 (1.3-6.7); Neutrophils Percent Auto 51.3 % (45.5-73.1); Platelet Count Result 344 k/mm3 (150-375); Red Blood Count 5.21 M/mm3 (4.6-6.20); Red Cell Distribution Width 13.5 % (11.5-14.5); White Blood Count 11.4 K/mm3 (4.5-10.0)
[2022-04-28 16:38] LABS: Add Urine Microscopic? NO; Appearance Urine Clear (Clear); Bilirubin Urine Negative (Negative); Blood Urine Negative (Negative); Color Urine Light Yellow (Yellow); Glucose Urine UA Negative (Negative); Ketones Urine Negative (Negative); Leukocyte Esterase Ur Negative LEU/UL (Negative); Nitrate Urine Negative (Negative); Protein Urine Negative (Negative); Specific Grav Ur 1.015 (1.001-1.035); Urobilinogen Urine 0.2 mg/dL (<2.0)
[2022-04-28 16:47] LABS: Mucus Urine Rare /lpf; RBC Urine 0-2 /hpf (0-2); WBC Urine 0-3 /hpf
== END 2022-04-28 15:49 | disposition home or self-care (01) ==
LOC: ANHLAB 15:50
PROVIDERS: PCP Family Medicine; Visit Provider Surgery
DX: R10.9 Unspecified abdominal pain (principal)
CPT/HCPCS: 36415; 81003; 85025

== ENCOUNTER 2022-05-13 12:09 | Outpatient (CLI) | payer OTHER, SELFPAY ==
[2022-05-13 12:34] LABS: Basophils Absolute Auto 0.1 K/mm3 (0.0-0.1); Eosinophils Absolute Auto 0.4 K/mm3 (0-0.3); Eosinophils Percent Auto 3.9 % (0-4.4); Hematocrit 44.7 % (42.0-52.0); Hemoglobin 15.3 g/dL (14.0-18.0); Immature Granulocyte Absolute 0.06 K/mm3 (0.00-0.031); Immature Granulocyte Percent A 0.5 % (0-0.5); Lymphocytes Absolute Auto 3.65 K/mm3 (0.9-3.2); Lymphocytes Percent Auto 32.4 % (18.3-44.2); Mean Corpuscular HGB Conc 34.2 g/dl (32-36); Mean Corpuscular Hemoglobin 29.4 pg (26-34); Mean Platelet Volume 10.5 fl (7.4-10.4); Monocytes Absolute Auto 1.1 K/mm3 (0.1-0.6); Monocytes Percent Auto 9.9 % (2.6-8.5); Neutrophils Absolute Auto 5.9 K/mm3 (1.3-6.7); Neutrophils Percent Auto 52.3 % (45.5-73.1); Platelet Count Result 264 k/mm3 (150-375); White Blood Count 11.3 K/mm3 (4.5-10.0)
[2022-05-13 12:46] LABS: Alanine Aminotransferase 57 U/L (6-50); Albumin Level 4.7 g/dL (3.5-5.1); Alkaline Phosphatase 97 U/L (38-126); Anion Gap 4 mmol/L (8-16); Aspartate Amino Transferase 42 U/L (17-59); Bilirubin,Total 0.7 mg/dL (0.2-1.3); Blood Urea Nitrogen 8 mg/dL (9-20); Calcium 9.2 mg/dL (8.4-10.2); Carbon Dioxide 30 mmol/L (22-30); Chloride 103 mmol/L (98-107); Cholesterol 235 mg/dL (0-200); Estimated Glomerular Filt Rate > 60; Glucose 95 mg/dL (65-110); HDL Direct 39 mg/dL; Potassium 3.9 mmol/L (3.4-5.0); Sodium 137 mmol/L (137-145); Triglycerides 263 mg/dL (<150)
[2022-05-13 12:57] LABS: LDL Cholesterol Direct 129 mg/dL
[2022-05-13 13:03] LABS: Creatinine Urine 91.5 mg/dL
[2022-05-13 13:08] LABS: MALB Creatinine Ratio 6.6 mg/g (0-30)
== END 2022-05-13 12:10 | disposition home or self-care (01) ==
LOC: ANHLAB 12:12
PROVIDERS: PCP Family Medicine
DX: K57.20 Diverticulitis of large intestine with perforation and abscess without bleeding (principal); K65.9 Peritonitis, unspecified; I10 Essential (primary) hypertension
CPT/HCPCS: 36415; 80053; 80061; 82043; 85025

== ENCOUNTER 2022-07-13 00:05 | Day surgery (SDC) | payer OTHER, SELFPAY ==
[2022-06-09 15:17] VITALS: BMI 27.5
[2022-07-02 13:01] VITALS: BMI 27.5
[2022-07-13 09:51] VITALS: BP 148/98; PULSE 75; RESP 20; TEMP 36.3; O2SAT 97
--- NOTE | 2022-07-13 09:51 | PM.HPGS ---
History of Present Illness History of Present Illness Consent: Risks, benefits, and alternatives have been discussed and questions answered. Patient agrees to proceed with procedure. Chief complaint: diverticulitis Narrative: Bernard Enamorado is a 46 year old male here for first colonoscopy, about 2 months ago admitted for perforated diverticulitis that required surgery and now has colostomy bag. Review of Systems Constitutional: Constitutional: Denies headache(s) and Denies weakness Eyes: Eyes: Denies blurry vision ENT: Reports Normal hearing present, Denies headache(s) and Denies neck pain Cardiovascular: Cardiovascular: Denies chest pain and Denies dyspnea Respiratory: Respiratory: Denies dyspnea Gastrointestinal: Gastrointestinal: Reports no additional gastrointestinal complaints Genitourinary: Genitourinary: Denies dysuria Musculoskeletal: Musculoskeletal: Denies neck pain Integumentary/Breasts: Skin/Breast: Denies dry skin Neurologic: Reports Normal hearing present, Denies headache(s) and Denies weakness Psychiatric: Psychiatric: Denies anxiety Endocrine: Endocrine: Denies change in body appearance Hematologic/Lymphatic: Hematologic/Lymphatic: Denies easy bleeding Allergic/Immunologic: Allergic/Immunologic: Denies urticaria PMFSH Past Medical History Medical History Hypertension was on lisinopril for a while but stopped about 3 years ago when his pressure became better Marijuana abuse Obesity (BMI 30-39.9) Perforation of sigmoid colon due to diverticulitis (03/2022) Urinary retention Surgical History Surgical History History of exploratory laparotomy (03/2022) History of hemorrhoidectomy History of laparoscopic cholecystectomy Status post Inés procedure (03/2022) Inés's Procedure (Open sigmoid colectomy with left-sided end colostomy), Exploratory laparotomy, Peritoneal irrigation 03/20 Family History Family History Father Carcinoma of colon Mother Family history of lung cancer Other Family history of allergic disorder Hypertension Social History Social History Social History: Code status: Full code. Smoking packs per day: 1 Smoking cigarettes per day: 20.0 Years smoked: 18 Smoking pack-years: 18.00 Smoking status: Former smoker Tobacco type: cigarettes Additional smoking assessment comments: Quit about 10 years ago. 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 Spiritual care concerns: No Meds Home Medications and Allergies Home Medications Medication Instructions Recorded Confirmed Type carvedilol 6.25 mg tablet 6.25 mg PO BID #30 tabs 03/26/22 06/09/22 Rx acetaminophen 500 mg tablet 500 mg PO Q6H PRN Pain 04/07/22 06/09/22 History (Tylenol Extra Strength) lisinopril 5 mg tablet 5 mg PO DAILY 06/09/22 06/09/22 History Allergies Allergy/AdvReac Type Severity Reaction Status Date / Time Penicillins Allergy Severe Unknown Verified 07/13/22 09:51 codeine Allergy Intermediate Itching Verified 07/13/22 09:51 Exam Const: General: comfortable and no acute distress HENMT: Face/Nose/Sinus: Normal nares present Eyes: General: appearance normal, both eyes and all related structures Neck: Neck: no JVD Resp: Auscultation: clear to auscultation bilater
[2022-07-13] MEDS: LACTATED RINGERS 1,000 ML 150 ML IV CONT (10:00)
--- NOTE | 2022-07-13 10:01 | WPDANESEPPF ---
Anes - Initial Pre Proc Eval Procedure: Operation Date: 07/13/22 11:15 Proposed Procedures p Colonoscopy - Ga Mario MD Date/Time: 07/13/22 10:01 Surgeon: Ga Mario MD Pre Op Diagnosis: diverticulitis Patient Data Age: 46 Gender: M Height: 1.91 m Weight: 101.8 kg Last Vital Signs Temp 97.3 F L 07/13/22 09:51 Pulse 75 07/13/22 09:51 Resp 20 07/13/22 09:51 BP 148/98 H 07/13/22 09:51 Pulse Ox 97 07/13/22 09:51 O2 Del Method Room Air 07/13/22 09:51 Allergies Allergy/AdvReac Type Severity Reaction Status Date / Time Penicillins Allergy Severe Unknown Verified 07/13/22 09:51 codeine Allergy Intermediate Itching Verified 07/13/22 09:51 Home Medications Medication Instructions Recorded Confirmed Type carvedilol 6.25 mg tablet 6.25 mg PO BID #30 tabs 03/26/22 06/09/22 Rx acetaminophen 500 mg tablet 500 mg PO Q6H PRN Pain 04/07/22 06/09/22 History (Tylenol Extra Strength) lisinopril 5 mg tablet 5 mg PO DAILY 06/09/22 06/09/22 History Patient hx anesthesia problems: none Family hx anesthesia problems: none Results Review: All pre-operative results and documents have been reviewed as part of the pre-operative evaluation. [facility] Past Medical History Medical History Hypertension was on lisinopril for a while but stopped about 3 years ago when his pressure became better Marijuana abuse Obesity (BMI 30-39.9) Perforation of sigmoid colon due to diverticulitis (03/2022) Urinary retention Surgical History Surgical History History of exploratory laparotomy (03/2022) History of hemorrhoidectomy History of laparoscopic cholecystectomy Status post Inés procedure (03/2022) Inés's Procedure (Open sigmoid colectomy with left-sided end colostomy), Exploratory laparotomy, Peritoneal irrigation 03/20 Family History Family History Father Carcinoma of colon Mother Family history of lung cancer Other Family history of allergic disorder Hypertension Social History Social History Social History: Code status: Full code. Smoking packs per day: 1 Smoking cigarettes per day: 20.0 Years smoked: 18 Smoking pack-years: 18.00 Smoking status: Former smoker Tobacco type: cigarettes Additional smoking assessment comments: Quit about 10 years ago. 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 Spiritual care concerns: No Anes - Eval Final PreProcedure Day of Procedure 07/13/22 10:01 Patient weight: overweight Heart: regular rate and rhythm Lungs: clear to auscultation Airway: Mallampati scale class II Neurological: alert and oriented Last oral intake: >/= 8 hours ASA classification: II Emergent: no Anesthetic plan: proceed Anesthesia type and monitoring: general GIVS and standard monitoring Results Review: All pre-operative results and documents have been reviewed as part of the pre-operative evaluation. Informed Consent: The patient's anesthetic plan and its attendant risks and benefits were discussed with the patient/family/POA. Questions were solicited and answers provided to the satisfaction of the patient/family/POA.
--- NOTE | 2022-07-13 10:11 | SUR.OPER ---
Colonoscopy performed through patient's colostomy.
[2022-07-13 10:19] VITALS: BP 127/77; PULSE 72; RESP 18; O2SAT 96
[2022-07-13 10:29] VITALS: BP 138/96; PULSE 59; RESP 18; O2SAT 99
[2022-07-13 10:39] VITALS: BP 140/98; PULSE 57; RESP 16; O2SAT 99
== END 2022-07-13 11:11 | disposition home or self-care (01) ==
PROVIDERS: PCP Family Medicine; Visit Provider Internal Medicine Gastroenterology
PROC: 0DJD8ZZ Inspection of Lower Intestinal Tract, Via Natural or Artificial Opening Endoscopic (ICD-10-PCS; CPT 45378; principal; 2022-07-13 11:15)
DX: Z12.11 Encounter for screening for malignant neoplasm of colon (principal); K57.30 Diverticulosis of large intestine without perforation or abscess without bleeding; Z87.19 Personal history of other diseases of the digestive system; Z90.49 Acquired absence of other specified parts of digestive tract; Z87.891 Personal history of nicotine dependence; F12.90 Cannabis use, unspecified, uncomplicated; Z93.3 Colostomy status
CPT/HCPCS: 44388; J2704; J7120

== ENCOUNTER 2022-09-01 10:07 | Outpatient (CLI) | payer OTHER, SELFPAY ==
[2022-09-01 11:07] LABS: Basophils Absolute Auto 0.1 K/mm3 (0.0-0.1); Eosinophils Absolute Auto 0.2 K/mm3 (0-0.3); Eosinophils Percent Auto 2.5 % (0-4.4); Hematocrit 44.8 % (42.0-52.0); Hemoglobin 15.6 g/dL (14.0-18.0); Immature Granulocyte Absolute 0.03 K/mm3 (0.00-0.031); Immature Granulocyte Percent A 0.3 % (0-0.5); Lymphocytes Absolute Auto 3.77 K/mm3 (0.9-3.2); Lymphocytes Percent Auto 41.8 % (18.3-44.2); Mean Corpuscular HGB Conc 34.8 g/dl (32-36); Mean Corpuscular Hemoglobin 30.1 pg (26-34); Mean Corpuscular Volume 86.3 fl (80-100); Mean Platelet Volume 11.2 fl (7.4-10.4); Monocytes Absolute Auto 0.9 K/mm3 (0.1-0.6); Monocytes Percent Auto 9.6 % (2.6-8.5); Neutrophils Percent Auto 44.8 % (45.5-73.1); Platelet Count Result 248 k/mm3 (150-375); Red Blood Count 5.19 M/mm3 (4.6-6.20); Red Cell Distribution Width 12.9 % (11.5-14.5)
[2022-09-01 11:16] LABS: Alanine Aminotransferase 28 U/L (6-50); Albumin Level 4.8 g/dL (3.5-5.1); Alkaline Phosphatase 73 U/L (38-126); Anion Gap 4 mmol/L (8-16); Aspartate Amino Transferase 25 U/L (17-59); Bilirubin,Total 0.7 mg/dL (0.2-1.3); Blood Urea Nitrogen 5 mg/dL (9-20); Carbon Dioxide 31 mmol/L (22-30); Chloride 105 mmol/L (98-107); Estimated Glomerular Filt Rate > 60; Glucose 80 mg/dL (65-110); Potassium 3.9 mmol/L (3.4-5.0); Sodium 140 mmol/L (137-145)
== END 2022-09-01 10:08 | disposition home or self-care (01) ==
LOC: ANHSURGERY 10:11
PROVIDERS: PCP Family Medicine; Visit Provider Surgery
DX: Z93.3 Colostomy status (principal)
CPT/HCPCS: 36415; 80053; 85025; 86850; 86900; 86901; 86922

== ENCOUNTER 2022-09-10 09:34 | Inpatient (IN) | payer OTHER, SELFPAY ==
--- NOTE | 2022-09-01 09:31 | PC.NURSE ---
PRE-OP INSTRUCTIONS, PLEASE READ CAREFULLY Report to the Outpatient Waiting Room, entrance under the green pavilion located off [facility], at time _0600_ on date _09/10/22_. Planned Procedure Time: _0730_. PACK A SMALL OVERNIGHT BAG Time changes happen often and if your time is changed the preop area will call you the afternoon before. - You and your visitor will be asked to self-screen and do not enter if you have any COVID symptoms. - A mask is optional within the hospital at this time. -VISITING HOURS 8AM-8PM Patients may have clear liquids (water, carbonated beverages, clear teas, apple juice) until 3 hours prior to surgery (0430 AM) with a maximum of 20 ounces. - No food from midnight until time of surgery Take the following medications with a SIP of water the morning of surgery: _CARVEDILOL, TYLENOL IF NEEDED_ DO NOT STOP ANY OF YOUR OTHER PRESCRIPTION MEDICATIONS PRIOR TO SURGERY ?EXCEPT THE FOLLOWING Medications to discontinue per physician ___NONE____, Date to take last dose Please no make-up, nail belgian, hairspray, perfume, deodorant, or body powder the day of surgery. No jewelry (including any body piercings) or valuables the day of surgery, leave them at home. Please take a shower or bath the night before, or the morning of, surgery with an antibacterial soap. Wear comfortable, loose fitting clothing. - Jewelry must be removed prior to entering the operating room. Rings and piercings that are not removed may be cut off. - The hospital will not accept responsibility for valuables. - Please leave all valuables, including medications, at home the day of surgery. If you are going home after surgery, a licensed mobile lounge driver or operator must drive you home. - NO public transportation without another adult if you receive anesthesia. - We recommend that an adult stay with you for 24 hours following discharge. - We also recommend that you do not drive, make important decision, drink alcoholic beverages, or take any drugs that were not prescribed by your health care provider for at least 24 hours after your discharge time. Follow any additional instructions given to you from your surgeon. BOWEL PREP, DIET/ENSURE BUNDLE, PRE-OP ANTIBIOTICS, HIBICLENS SHOWER DAY BEFORE AND AM OF SURGERY If you or anyone in your household have experienced Covid symptoms in the past week, please notify your surgeon or the nurse liaison at the phone number below for possible testing. Instructions given to _PATIENT_and asked if any additional questions and then verbalized understanding. Patient advised to call surgeon office or pre surgery nurse liaison [phone] if any additional questions.
[2022-09-01 10:28] VITALS: BP 152/88; PULSE 64; RESP 20; TEMP 36.7; O2SAT 99; BMI 29.0
--- NOTE | 2022-09-08 05:01 | PM.IMHP ---
H&P: HPI History of Present Illness Date/Time: 09/08/22 05:01 Chief Complaint: surgery Narrative: I am asked to place pre -op stents for Dr Emery Review of Systems Review of Systems: All systems reviewed & are unremarkable except as noted in HPI and below PMFSH Past Medical History Medical History Hypertension was on lisinopril for a while but stopped about 3 years ago when his pressure became better Marijuana abuse Obesity (BMI 30-39.9) Perforation of sigmoid colon due to diverticulitis (03/2022) Urinary retention Surgical History Surgical History History of exploratory laparotomy (03/2022) History of hemorrhoidectomy History of laparoscopic cholecystectomy Status post Inés procedure (03/2022) Inés's Procedure (Open sigmoid colectomy with left-sided end colostomy), Exploratory laparotomy, Peritoneal irrigation 03/20 Family History Family History Father Carcinoma of colon Mother Family history of lung cancer Other Family history of allergic disorder Hypertension Social History Social History Social History: Code status: Full code. Smoking packs per day: 1 Smoking cigarettes per day: 20.0 Years smoked: 18 Smoking pack-years: 18.00 Smoking status: Former smoker Tobacco type: cigarettes Second hand tobacco smoke exposure: Yes Smoking end date: 05/09/11 Additional smoking assessment comments: Quit about 10 years ago. 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 Spiritual care concerns: No Meds Home Medications and Allergies Home Medications Medication Instructions Recorded Confirmed Type carvedilol 6.25 mg tablet 6.25 mg PO BID #30 tabs 03/26/22 09/01/22 Rx acetaminophen 500 mg tablet 500 mg PO Q6H PRN Pain 04/07/22 09/01/22 History (Tylenol Extra Strength) lisinopril 5 mg tablet 5 mg PO DAILY 06/09/22 09/01/22 History ciprofloxacin HCl 500 mg tablet 500 mg PO .COMPLEX #1 tablet 07/20/22 09/01/22 Rx metronidazole 500 mg tablet 500 mg PO .COMPLEX #3 tabs 07/20/22 09/01/22 Rx Allergies Allergy/AdvReac Type Severity Reaction Status Date / Time Penicillins Allergy Severe Unknown- Verified 09/01/22 10:26 A CHILD codeine Allergy Intermediate Itching Verified 09/01/22 10:26 Exam Narrative: NAD Assessment and Plan Assessment and plan (1) Colostomy in place: Code(s): Z93.3 - Colostomy status Status: Acute Assessment and Plan: preop stents. Ga or Dr James
--- NOTE | 2022-09-09 13:35 | WPDANESEPPF ---
Anes - Initial Pre Proc Eval Procedure: Operation Date: 09/10/22 07:30 Proposed Procedures p Robotic Assisted Laparoscopic Colostomy Take Down, Possible Open - Alfredo Emery MD s Stent Placement for Abdominal Surgery - Pb Henry MD Date/Time: 09/09/22 13:35 Surgeon: Alfredo Emery MD Pre Op Diagnosis: colostomy in place Patient Data Age: 47 Gender: M Height: 1.91 m Weight: 105.3 kg Last Vital Signs Temp 98.1 F 09/01/22 10:28 Pulse 64 09/01/22 10:28 Resp 20 09/01/22 10:28 BP 152/88 H 09/01/22 10:28 Pulse Ox 99 09/01/22 10:28 O2 Del Method Room Air 09/01/22 10:28 Allergies Allergy/AdvReac Type Severity Reaction Status Date / Time Penicillins Allergy Severe Unknown- Verified 09/01/22 10:26 A CHILD codeine Allergy Intermediate Itching Verified 09/01/22 10:26 Home Medications Medication Instructions Recorded Confirmed Type carvedilol 6.25 mg tablet 6.25 mg PO BID #30 tabs 03/26/22 09/01/22 Rx acetaminophen 500 mg tablet 500 mg PO Q6H PRN Pain 04/07/22 09/01/22 History (Tylenol Extra Strength) lisinopril 5 mg tablet 5 mg PO DAILY 06/09/22 09/01/22 History ciprofloxacin HCl 500 mg tablet 500 mg PO .COMPLEX #1 tablet 07/20/22 09/01/22 Rx metronidazole 500 mg tablet 500 mg PO .COMPLEX #3 tabs 07/20/22 09/01/22 Rx Patient hx anesthesia problems: none Family hx anesthesia problems: none Results Review: All pre-operative results and documents have been reviewed as part of the pre-operative evaluation. [facility] Past Medical History Medical History Hypertension was on lisinopril for a while but stopped about 3 years ago when his pressure became better Marijuana abuse Obesity (BMI 30-39.9) Perforation of sigmoid colon due to diverticulitis (03/2022) Urinary retention Surgical History Surgical History History of exploratory laparotomy (03/2022) History of hemorrhoidectomy History of laparoscopic cholecystectomy Status post Inés procedure (03/2022) Inés's Procedure (Open sigmoid colectomy with left-sided end colostomy), Exploratory laparotomy, Peritoneal irrigation 03/20 Family History Family History Father Carcinoma of colon Mother Family history of lung cancer Other Family history of allergic disorder Hypertension Social History Social History Social History: Code status: Full code. Smoking packs per day: 1 Smoking cigarettes per day: 20.0 Years smoked: 18 Smoking pack-years: 18.00 Smoking status: Former smoker Tobacco type: cigarettes Second hand tobacco smoke exposure: Yes Smoking end date: 05/09/11 Additional smoking assessment comments: Quit about 10 years ago. 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 Spiritual care concerns: No Anes - Eval Final PreProcedure Day of Procedure 09/09/22 13:35 Patient weight: obese Heart: regular rate and rhythm Lungs: clear to auscultation Airway: Mallampati scale class III Neurological: alert and oriented Last oral intake: >/= 8 hours ASA classification: II Emergent: no Anesthetic plan: proceed Anesthesia type and monitoring: general ETT and standard monitoring Results Review: All pre-operative results and documents have been reviewed as part of the pre-operative evaluation. I
[2022-09-10] VITALS (16 sets, daily range): BP systolic 133–178; BP diastolic 82–120; PULSE 69–100; RESP 12–20; TEMP 36–37.1; O2SAT 95–100
[2022-09-10] MEDS: KETOROLAC 15 MG/ML VIAL (*BKC) IV PUSH ×2 (07:00→13:44)
[2022-09-10] MEDS: ACETAMINOPHEN 500 MG TABLET 1000 MG PO (07:00)
[2022-09-10] MEDS: LACTATED RINGERS 1,000 ML 30 ML IV CONT ×2 (07:00→14:15)
--- NOTE | 2022-09-10 07:15 | WPDHPUPDATE1 ---
History and Physical Update Update Date/Time: 09/10/22 07:15 History and Physical has been reviewed, including an updated exam of the patient. There are NO changes in the patient's condition. Risks, benefits, and alternatives have been discussed and questions answered. Patient agrees to proceed with procedure. Will be done my me or Dr James
[2022-09-10] MEDS: ALVIMOPAN 12 MG CAPSULE PO ×2 (07:30→23:46)
--- NOTE | 2022-09-10 07:31 | PM.IMHP ---
H&P: HPI History of Present Illness Date/Time: 09/10/22 07:31 Chief Complaint: Colostomy in place Narrative: Pt previously had Blackmon's procedure for diverticulitis by Dr. Casas. He has done well over the past 6 months with his colostomy. He had a recent colonoscopy that showed no lesions that would preclude takedown of his colostomy. He presents today for a robotic assisted laparoscopic colostomy takedown, possible open takedown. Review of Systems Review of Systems: The remainder of the review of systems to include constitutional, HEENT, cardiovascular, respiratory, GI, , integumentary, musculoskeletal, endocrine, immunologic, hematologic, psychiatric, and neurologic are all negative except for which is mentioned above in the HPI. [facility] Past Medical History Medical History Hypertension was on lisinopril for a while but stopped about 3 years ago when his pressure became better Marijuana abuse Obesity (BMI 30-39.9) Perforation of sigmoid colon due to diverticulitis (03/2022) Urinary retention Surgical History Surgical History History of exploratory laparotomy (03/2022) History of hemorrhoidectomy History of laparoscopic cholecystectomy Status post Inés procedure (03/2022) Inés's Procedure (Open sigmoid colectomy with left-sided end colostomy), Exploratory laparotomy, Peritoneal irrigation 03/20 Family History Family History Father Carcinoma of colon Mother Family history of lung cancer Other Family history of allergic disorder Hypertension Social History Social History Social History: Code status: Full code. Smoking packs per day: 1 Smoking cigarettes per day: 20.0 Years smoked: 18 Smoking pack-years: 18.00 Smoking status: Former smoker Tobacco type: cigarettes Second hand tobacco smoke exposure: Yes Smoking end date: 05/09/11 Additional smoking assessment comments: Quit about 10 years ago. 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 Spiritual care concerns: No Meds Home Medications and Allergies Home Medications Medication Instructions Recorded Confirmed Type carvedilol 6.25 mg tablet 6.25 mg PO BID #30 tabs 03/26/22 09/01/22 Rx acetaminophen 500 mg tablet 500 mg PO Q6H PRN Pain 04/07/22 09/01/22 History (Tylenol Extra Strength) lisinopril 5 mg tablet 5 mg PO DAILY 06/09/22 09/01/22 History ciprofloxacin HCl 500 mg tablet 500 mg PO .COMPLEX #1 tablet 07/20/22 09/01/22 Rx metronidazole 500 mg tablet 500 mg PO .COMPLEX #3 tabs 07/20/22 09/01/22 Rx Allergies Allergy/AdvReac Type Severity Reaction Status Date / Time Penicillins Allergy Severe Unknown- Verified 09/01/22 10:26 A CHILD codeine Allergy Intermediate Itching Verified 09/01/22 10:26 Exam Const: General: comfortable and no acute distress Eyes: General: appearance normal, both eyes and all related structures Sclera: sclerae normal Pupils: Equal, round and reactive pupils present Neck: Neck: supple and no JVD Resp: Effort & Inspection: normal respiratory effort Auscultation: clear to auscultation bilaterally Cardio: Rate: regular rate Rhythm: regular rhythm GI: GI Palp: Yes Soft to palpation Other: Soft, nondistended, LLQ colostomy in place. No parastomal hernia. Midline scar stable, no
--- NOTE | 2022-09-10 07:37 | WPDHPUPDATE1 ---
History and Physical Update Update Date/Time: 09/10/22 07:37 History and Physical has been reviewed, including an updated exam of the patient. There are NO changes in the patient's condition. Risks, benefits, and alternatives have been discussed and questions answered. Patient agrees to proceed with procedure.
[2022-09-10] MEDS: ceFAZolin 2 GM/D5W 50 ML 2 GM/50 ML BAG IVPB (07:45)
[2022-09-10] MEDS: metroNIDAZOLE 500 MG/ISO 100ML 500 MG/100 ML BAG 100 MG IVPB (08:00)
--- NOTE | 2022-09-10 08:18 | W.PM.PROC2 ---
Procedure Note - Detailed Date of Procedure 09/10/22 Pre-op Diagnosis colostomy in place History of diverticulitis Need for ureteral identification Post-op Diagnosis Same Procedure Performed Cystoscopy with placement of bilateral ureteral catheter Surgeon Pb Henry MD Anesthesia General Findings I am asked to place bilateral stents to aid in ureteral identification during his colostomy take down. Discussed the risks of bleeding, infection, inability to place the stents, damage to the ureters or kidney. He agrees to proceed Description of Procedure He has correctly identified. Informed consent obtained. From the operating room. He was given general anesthesia. His placed in dorsal lithotomy position. Pressure points were padded. He was given appropriate perioperative antibiotics. Time-out performed. Cystoscopy revealed normal-appearing bladder with a few cellules and trabeculations. Ureteral orifices were normal. There was no tumors the bladder. I placed a guidewire into the left ureter. I placed up to the level the kidney. I placed open-ended ureteral catheter over the guidewire. It went up quite easily to a length of 25 cm. I then placed a guidewire in the right ureteral orifice. I put it up to level the kidney. I placed an open-ended catheter up the ureter without resistance. Again to 25 cm. I placed Angulo catheter. The stents were secured to the Angulo. The staff was instructed on how to remove the stents at the end of the case. He will now undergo colostomy takedown. Implants Temporary ureteral stents Estimated Blood Loss 0 Complications No immediate complications Condition Stable Disposition PACU
[2022-09-10] MEDS: fentaNYL CITRATE INJ (*CRX) 100 MCG/2 ML VIAL 25 MCG IV PUSH ×7 (14:37→15:31)
[2022-09-10] MEDS: hydrALAZINE HCL 20 MG/ML VIAL 5 MG IV PUSH ×3 (14:43→15:28)
[2022-09-10] MEDS: ONDANSETRON INJ 4 MG/2 ML VIAL IV PUSH ×2 (15:19→20:52)
--- NOTE | 2022-09-10 16:15 | PC.NURSE ---
This patient, Bernard Enamorado, was admitted to Medical Room 241-. Patient/family oriented to hospital policies and general routines including ID bracelet, bed and alarms, visiting hours, pain management, procedures, bathroom and other care routines, personal items, smoking policy, room service/diet, and visiting hours. Information on how to activate the Rapid Response Team has been discussed. Patient/Family are encouraged to report perceived risks to care and to ask questions if they do not understand what they are told or what they should do.
[2022-09-10] MEDS: oxyCODONE HCL (*CRX) 5 MG TAB IR PO (16:38)
[2022-09-10] MEDS: MORPHINE SULFATE (*CRX) 4 MG/ML INJ IV PUSH (21:19)
[2022-09-10] MEDS: carvediloL 6.25 MG TABLET PO (23:45)
[2022-09-11] VITALS (10 sets, daily range): BP systolic 129–151; BP diastolic 83–95; PULSE 67–88; RESP 16–20; TEMP 36.7–37.1; O2SAT 94–98
[2022-09-11 05:14] LABS: Basophils Percent Auto 0.2 % (0.2-1.2); Hematocrit 44.3 % (42.0-52.0); Hemoglobin 15.4 g/dL (14.0-18.0); Immature Granulocyte Absolute 0.13 K/mm3 (0.00-0.031); Immature Granulocyte Percent A 0.6 % (0-0.5); Lymphocytes Absolute Auto 3.18 K/mm3 (0.9-3.2); Lymphocytes Percent Auto 15.3 % (18.3-44.2); Mean Corpuscular HGB Conc 34.8 g/dl (32-36); Mean Corpuscular Hemoglobin 30.1 pg (26-34); Mean Corpuscular Volume 86.7 fl (80-100); Mean Platelet Volume 11.7 fl (7.4-10.4); Monocytes Percent Auto 9.6 % (2.6-8.5); Neutrophils Absolute Auto 15.4 K/mm3 (1.3-6.7); Neutrophils Percent Auto 74.3 % (45.5-73.1); Platelet Count Result 260 k/mm3 (150-375); Red Blood Count 5.11 M/mm3 (4.6-6.20); Red Cell Distribution Width 13.2 % (11.5-14.5); White Blood Count 20.8 K/mm3 (4.5-10.0)
[2022-09-11 05:29] LABS: Anion Gap 9 mmol/L (8-16); Blood Urea Nitrogen 10 mg/dL (9-20); Calcium 8.7 mg/dL (8.4-10.2); Carbon Dioxide 30 mmol/L (22-30); Chloride 99 mmol/L (98-107); Estimated CRCL calculation 105 ml/min; Estimated Glomerular Filt Rate > 60; Glucose 119 mg/dL (65-110); Potassium 3.4 mmol/L (3.4-5.0); Sodium 138 mmol/L (137-145)
--- NOTE | 2022-09-11 06:58 | P.PNAN_ITS ---
Anes - Prog Note Post-Op Date/Time: 09/11/22 06:58 Cardiovascular status: normal Respiratory status: normal Airway patency: baseline Mental status: baseline Post-Op hydration status: normal Vital Signs: Last Vital Signs Temp 36.7 C 09/11/22 04:19 Pulse 82 09/11/22 04:19 Resp 20 09/11/22 04:19 BP 148/94 H 09/11/22 04:19 Pulse Ox 96 09/11/22 04:19 O2 Del Method Room Air 09/10/22 20:00 O2 Flow Rate 8 09/10/22 15:00 Pain Score (VAS): 4 I/O: Intake & Output 09/10/22 09/10/22 09/11/22 15:59 23:59 07:59 Intake Total 450 490 Output Total 700 Balance 450 -700 490 Laboratory Tests 09/11/22 04:43 09/11/22 04:43 09/11/22 04:43 WBC 20.8 H RBC 5.11 Hgb 15.4 Hct 44.3 MCV 86.7 MCH 30.1 MCHC 34.8 RDW 13.2 Plt Count 260 MPV 11.7 H Immature Gran % (Auto) 0.6 H Neut % (Auto) 74.3 H Lymph % (Auto) 15.3 L Angelina % (Auto) 9.6 H Eos % (Auto) 0.0 Baso % (Auto) 0.2 Lymph # (Auto) 3.18 Angelina # (Auto) 2.0 H Eos # (Auto) 0.0 Baso # (Auto) 0.0 Abs Immat Gran (auto) 0.13 H Absolute Neuts (auto) 15.4 H Absolute Nucleated RBC 0.0 Nucleated RBC % 0.0 Sodium 138 Potassium 3.4 Chloride 99 Carbon Dioxide 30 Anion Gap 9 BUN 10 D Creatinine 0.90 Estim Creat Clear Calc 105 Estimated GFR > 60 Glucose 119 H Calcium 8.7 Post-procedural complaints: none Patient Feedback: Patient satisfied with anesthetic care.
[2022-09-11] MEDS: MORPHINE SULFATE (*CRX) 4 MG/ML INJ IV PUSH ×4 (07:31→20:38)
[2022-09-11] MEDS: ONDANSETRON INJ 4 MG/2 ML VIAL IV PUSH ×3 (07:31→20:38)
[2022-09-11] MEDS: lisinopriL 5 MG TABLET PO (09:13)
[2022-09-11] MEDS: ALVIMOPAN 12 MG CAPSULE PO (09:14)
[2022-09-11] MEDS: ENOXAPARIN 40 MG/0.4 ML SYRINGE SUB-Q (09:14)
[2022-09-11] MEDS: PANTOPRAZOLE 40 MG TABLET PO (09:14)
[2022-09-11] MEDS: carvediloL 6.25 MG TABLET PO ×2 (09:14→16:34)
--- NOTE | 2022-09-11 11:05 | PM.PNGS ---
Progress Note: A&P Assessment and Plan (1) History of colostomy reversal: Code(s): Z98.890 - Other specified postprocedural states Status: Acute Assessment and Plan: Doing well postop day 1. Advanced to full liquids. Increase ambulation. Recheck labs and exam again tomorrow. Patient requests sleeping pill. (2) Perforation of sigmoid colon due to diverticulitis: Onset Date: 03/2022 Code(s): K57.20 - Diverticulitis of large intestine with perforation and abscess without bleeding Status: Resolved (3) Colostomy in place: Code(s): Z93.3 - Colostomy status Status: Resolved Subjective Subjective Date/Time Seen: 09/11/22 11:05 Post Op day: 1 Patient reports: no new complaints, pain is less, tolerating liquids well, no flatus, no bowel movement and afebrile Exam Const: General: comfortable and no acute distress Orientation/consciousness: patient oriented x3 GI: Inspection: incision (Dressing dry and intact, trocar sites healing well) GI Palp: Yes Soft to palpation, Yes Tenderness to palpation present (GI), No Guarding due to palpation present (GI) and No Rebound tenderness present Auscultation: normal bowel sounds Neuro: General: patient oriented x3 and no focal motor deficits Extrem: General: no calf tenderness and no edema Psych: Affect: normal affect Insight: Good insight present (Psych) Judgement: Good judgement present (Psych) Objective Data Vital Signs Vital Signs: Vital Signs - 24 hr 09/10/22 14:15 09/10/22 14:30 09/10/22 14:45 Temperature 37.1 C Pulse Rate 100 89 82 Respiratory Rate 12 16 14 Blood Pressure 146/120 H 165/110 H 151/104 H Pulse Oximetry 100 100 100 Oxygen Delivery Simple Face Mask Simple Face Mask Simple Face Mask Oxygen Flow Rate 8 8 8 09/10/22 15:00 09/10/22 15:10 09/10/22 15:15 Temperature Pulse Rate 90 92 Respiratory Rate 14 16 Blood Pressure 163/115 H 155/102 H Pulse Oximetry 100 95 Oxygen Delivery Simple Face Mask Room Air Room Air Oxygen Flow Rate 8 09/10/22 15:30 09/10/22 15:41 09/10/22 16:30 Temperature 36.7 C Pulse Rate 91 96 93 Respiratory Rate 16 14 14 Blood Pressure 142/102 H 151/95 H Pulse Oximetry 96 95 97 Oxygen Delivery Room Air Room Air Oxygen Flow Rate 09/10/22 16:45 09/10/22 17:15 09/10/22 18:15 Temperature 36.7 C 36.7 C 36.6 C Pulse Rate 84 89 90 Respiratory Rate 15 15 15 Blood Pressure 161/99 H 145/90 H 140/82 Pulse Oximetry 98 98 98 Oxygen Delivery Oxygen Flow Rate 09/10/22 19:56 09/10/22 20:00 09/10/22 23:45 Temperature 36.0 C L Pulse Rate 75 75 86 Respiratory Rate 20 20 Blood Pressure 166/98 H Pulse Oximetry 97 97 Oxygen Delivery Room Air Oxygen Flow Rate 09/10/22 23:50 09/11/22 04:19 09/11/22 08:00 Temperature 36.2 C L 36.7 C Pulse Rate 100 82 Respiratory Rate 20 20 Blood Pressure 178/101 H 148/94 H Pulse Oximetry 98 96 96 Oxygen Delivery Room Air Oxygen Flow Rate 09/11/22 09:14 Temperature Pulse Rate 88 Respiratory Rate Blood Pressure Pulse Oximetry Oxygen Delivery Oxygen Flow Rate Intake/Output Intake/Output: Intake & Output 09/08/22 09/09/22 09/10/22 09/11/22 23:59 23:59 23:59 23:59 Intake Total 450 610 Output Total 700 Balance -250 610 Meds/Results Medications: Active Medications Generic Name Dose Route Start Last Admin Trade Name Freq PRN Reason Stop Dose Admin Carvedilol 6.25 mg 09/10/22 17:00 09/11/22 09:14 Carvedilol 6.25 Mg Tablet PO 6.25 mg BID CECE Administration Enoxaparin Sodium 40 mg 09/11/22 09:00 09/11/22 09:14 Enoxaparin 40 Mg/0.4 Ml Syringe SUB-Q 40 mg DAILY CECE Administration Lisinopril 5 mg 09/11/22 09:00 09/11/22 09:13 Lisinopril 5 Mg Tablet PO 5 mg DAILY CECE Administration Morphine Sulfate 4 mg 09/10/22 15:42 09/11/22 07:31 Morphine Sulfate (*Crx) 4 Mg/Ml Inj IV PUSH 4 mg Q4H PRN Administration Pain Rated 7
[2022-09-11] MEDS: POTASSIUM CHLORIDE 20 MEQ TABLET.ER PO ×2 (12:53→16:34)
[2022-09-12] MEDS: ONDANSETRON INJ 4 MG/2 ML VIAL IV PUSH ×4 (02:47→19:46)
[2022-09-12] MEDS: MORPHINE SULFATE (*CRX) 4 MG/ML INJ IV PUSH ×6 (02:48→19:45)
[2022-09-12 03:42] VITALS: BP 133/84; PULSE 65; RESP 18; TEMP 36.1; O2SAT 97
[2022-09-12 05:19] LABS: Hematocrit 43.3 % (42.0-52.0); Hemoglobin 14.6 g/dL (14.0-18.0); Mean Corpuscular HGB Conc 33.7 g/dl (32-36); Mean Corpuscular Hemoglobin 30.2 pg (26-34); Mean Corpuscular Volume 89.6 fl (80-100); Mean Platelet Volume 11.6 fl (7.4-10.4); Platelet Count Result 230 k/mm3 (150-375); Red Blood Count 4.83 M/mm3 (4.6-6.20); Red Cell Distribution Width 13.2 % (11.5-14.5); White Blood Count 16.6 K/mm3 (4.5-10.0)
[2022-09-12 05:29] LABS: Anion Gap 8 mmol/L (8-16); Blood Urea Nitrogen 9 mg/dL (9-20); Calcium 8.4 mg/dL (8.4-10.2); Carbon Dioxide 31 mmol/L (22-30); Chloride 98 mmol/L (98-107); Estimated CRCL calculation 117 ml/min; Estimated Glomerular Filt Rate > 60; Glucose 102 mg/dL (65-110); Potassium 3.4 mmol/L (3.4-5.0); Sodium 137 mmol/L (137-145)
[2022-09-12 10:05] VITALS: BP 150/88; PULSE 74; RESP 18; TEMP 36.6; O2SAT 96
[2022-09-12] MEDS: PANTOPRAZOLE 40 MG TABLET PO (10:38)
[2022-09-12] MEDS: POTASSIUM CHLORIDE 20 MEQ TABLET.ER PO ×2 (10:38→17:09)
[2022-09-12] MEDS: lisinopriL 5 MG TABLET PO (10:38)
[2022-09-12] MEDS: carvediloL 6.25 MG TABLET PO ×2 (10:39→17:09)
[2022-09-12] MEDS: ENOXAPARIN 40 MG/0.4 ML SYRINGE SUB-Q (10:40)
[2022-09-12 14:35] VITALS: BP 138/86; PULSE 65; RESP 18; TEMP 36.5; O2SAT 99
--- NOTE | 2022-09-12 14:35 | PM.PNGS ---
Progress Note: A&P Assessment and Plan (1) History of colostomy reversal: Code(s): Z98.890 - Other specified postprocedural states Status: Acute Assessment and Plan: doing well. Still having a lot of pain. Advance to low fiber diet. Cont present care. Subjective Subjective Date/Time Seen: 09/12/22 14:35 Post Op day: 2 Patient reports: no new complaints, pain is less, tolerating liquids well, flatus, no bowel movement and afebrile Exam Const: General: comfortable and no acute distress Orientation/consciousness: patient oriented x3 GI: Inspection: non-distended and incision (oz changed colost site; all healing well) GI Palp: Yes Soft to palpation, Yes Tenderness to palpation present (GI), No Guarding due to palpation present (GI) and No Rebound tenderness present Neuro: General: patient oriented x3 and no focal motor deficits Extrem: General: no calf tenderness and no edema Psych: Affect: normal affect Insight: Good insight present (Psych) Judgement: Good judgement present (Psych) Objective Data Vital Signs Vital Signs: Vital Signs - 24 hr 09/11/22 16:34 09/11/22 18:00 09/11/22 19:34 Temperature 36.8 C 36.9 C Pulse Rate 70 73 71 Respiratory Rate 16 17 Blood Pressure 139/85 134/84 Pulse Oximetry 95 96 Oxygen Delivery 09/11/22 23:24 09/11/22 20:00 09/12/22 03:42 Temperature 37.1 C 36.1 C L Pulse Rate 75 68 65 Respiratory Rate 18 20 18 Blood Pressure 129/83 133/84 Pulse Oximetry 95 94 97 Oxygen Delivery Room Air 09/12/22 10:05 Temperature 36.6 C Pulse Rate 74 Respiratory Rate 18 Blood Pressure 150/88 H Pulse Oximetry 96 Oxygen Delivery Intake/Output Intake/Output: Intake & Output 09/09/22 09/10/22 09/11/22 09/12/22 23:59 23:59 23:59 23:59 Intake Total 450 2660 120 Output Total 700 700 Balance -250 1960 120 Meds/Results Medications: Active Medications Generic Name Dose Route Start Last Admin Trade Name Freq PRN Reason Stop Dose Admin Acetaminophen 1,000 mg 09/11/22 11:13 Acetaminophen 500 Mg Tablet PO Q6H PRN Mild Pain (1-3) or Fever Carvedilol 6.25 mg 09/10/22 17:00 09/12/22 10:39 Carvedilol 6.25 Mg Tablet PO 6.25 mg BID CECE Administration Enoxaparin Sodium 40 mg 09/11/22 09:00 09/12/22 10:40 Enoxaparin 40 Mg/0.4 Ml Syringe SUB-Q 40 mg DAILY CECE Administration Lisinopril 5 mg 09/11/22 09:00 09/12/22 10:38 Lisinopril 5 Mg Tablet PO 5 mg DAILY CECE Administration Morphine Sulfate 4 mg 09/10/22 15:42 09/12/22 11:01 Morphine Sulfate (*Crx) 4 Mg/Ml Inj IV PUSH 4 mg Q4H PRN Administration Pain Rated 7-10 Ondansetron HCl 4 mg 09/12/22 09:36 09/12/22 11:01 Ondansetron Inj 4 Mg/2 Ml Vial IV PUSH 4 mg Q4H PRN Administration Nausea And Vomiting Oxycodone HCl 5 mg 09/10/22 15:42 09/10/22 16:38 Oxycodone Hcl (*Crx) 5 Mg Tab Ir PO 5 mg Q4H PRN Administration Pain Rated 7-10 Pantoprazole Sodium 40 mg 09/11/22 09:00 09/12/22 10:38 Pantoprazole 40 Mg Tablet PO 40 mg QAM CECE Administration Potassium Chloride 20 meq 09/11/22 11:10 09/12/22 10:38 Potassium Chloride 20 Meq Tablet.Er PO 20 meq BIDWM CECE Administration Trazodone HCl 50 mg 09/11/22 11:02 Trazodone Hcl 50 Mg Tablet PO HS PRN Insomnia Labs Labs: Laboratory Results - last 24 hr 09/12/22 04:24 WBC 16.6 H RBC 4.83 Hgb 14.6 Hct 43.3 MCV 89.6 MCH 30.2 MCHC 33.7 RDW 13.2 Plt Count 230 MPV 11.6 H Sodium 137 Potassium 3.4 Chloride 98 Carbon Dioxide 31 H Anion Gap 8 BUN 9 Creatinine 0.80 Estim Creat Clear Calc 117 Estimated GFR > 60 Glucose 102 Calcium 8.4
[2022-09-12 17:09] VITALS: PULSE 65
[2022-09-12 19:38] VITALS: BP 142/95; PULSE 66; RESP 18; TEMP 36.5; O2SAT 96
[2022-09-12 20:00] VITALS: PULSE 66; RESP 18; O2SAT 96
[2022-09-13] MEDS: MORPHINE SULFATE (*CRX) 4 MG/ML INJ IV PUSH ×2 (00:05→04:48)
[2022-09-13] MEDS: ONDANSETRON INJ 4 MG/2 ML VIAL IV PUSH ×3 (00:05→09:05)
[2022-09-13 04:20] VITALS: BP 135/86; PULSE 84; RESP 18; TEMP 36.6; O2SAT 98
[2022-09-13 05:26] LABS: Potassium 3.6 mmol/L (3.4-5.0)
--- NOTE | 2022-09-13 07:16 | W.PM.PROC2 ---
Procedure Note - Detailed Date of Procedure 09/10/22 Pre-op Diagnosis Colostomy in place Post-op Diagnosis Same Procedure Performed Robotic assisted laparoscopic colostomy takedown with stapled end-to-end colonic anastomosis. Surgeon Alfredo Emery MD Blocking Machine Operator Second Jace Van, Anesthesia General Indications Patient is a 46-year-old gentleman who last year had a perforated diverticulitis which required a Inés's procedure and placement of an end colostomy. Has done well in the past 6 months had a colonoscopy which showed no evidence of other colonic lesions. He presents now for takedown of the colostomy and restoring continuity of his GI tract. Findings Adhesions of the small bowel to the colostomy and in the pelvis. Otherwise no significant findings. Description of Procedure After informed consent was obtained the patient brought to the operating room placed low lithotomy position on the operating table. Dr. Henry then came to the operating room and placed bilateral ureteral stents for pelvic surgery. Angulo catheter was placed as well. The rectum was then irrigated with procto wash. The colostomy in the left lower quadrant the abdomen was sutured closed with a 2-0 silk suture. The end was then prepped and draped in usual sterile fashion. I 1st started by placing robotic trocar port along the right side of the abdomen. I initially gained entrance into the end with a 5mm Optiview port right upper quadrant with a direct optical insertion. Once inside the abdomen insufflated to adequate pneumoperitoneum of 15mmHg CO2. A see there were some adhesions of the omentum to the undersurface of the anterior abdominal wall below the umbilicus. There were also some adhesions of the small bowel to the colostomy and to the pelvic sidewalls. I then placed the patient in the head-down Trendelenburg position and continued to place additional 8 and 12mm trocar ports under direct visualization. The opendorse Sophie robot was then brought to the patient's bedside and then the robotic arms were docked to the robotic ports. Robotic instruments and the robotic camera were then advanced into the abdomen without difficulty under direct visualization. I then scrubbed out the procedure sent down to the robotic console to perform the dissection robotically. Utilizing energized robotic Metzenbaum scissors I then proceeded to perform adhesiolysis of the small bowel and the omentum off of the undersurface of the anterior abdominal wall and away from the mesentery bowel wall of the colostomy number left lower quadrant. I also performed adhesiolysis of the small bowel loops which were adherent to the pelvic sidewall. This is all done without causing any enterotomies. I then had a small bowel mobilized up out of the pelvis and the descending colon isolated coming up to the quadrant of the abdominal wall. I then identified the rectal stump and was actually the end of the distal sigmoid colon as Dr. Casas had previously left about 6 to 8 cm of the distal sigmoid. The staple line on the Inés's pouch tagged with Prolene sutures in the was easily identified. I then had size was placed into the rectum transanally to dilate up the lumen of the rectal stump. It also allowed me to see the end of the staple line and then I performed dissection of the Inés's pouch with the vessel sealer on the robotic platform. Once I had adequate portion of the rectal some dissected out I then proceeded to resect about 3cm of the end of the Inés's pouch with the 45mm SureForm robotic stapler. The small portion of bowel was removed from the abdomen. I then proceeded to scrub back into the procedure and I dissected out the percutaneous junction of the end of the colostomy utilizing electrocautery. This allowed me to really pull up the descending colon exterior to the abdominal wall. I then resected the end of the colon Jazmin GI 55 stapler. I then opened the end of the bowel and placed a 3-0 Prol
[2022-09-13 08:15] VITALS: BP 149/97; PULSE 71; RESP 18; TEMP 36.6; O2SAT 99
[2022-09-13 08:30] VITALS: PULSE 68
[2022-09-13] MEDS: carvediloL 6.25 MG TABLET PO (08:30)
[2022-09-13] MEDS: POTASSIUM CHLORIDE 20 MEQ TABLET.ER PO (08:30)
[2022-09-13] MEDS: PANTOPRAZOLE 40 MG TABLET PO (08:32)
[2022-09-13] MEDS: ENOXAPARIN 40 MG/0.4 ML SYRINGE SUB-Q (08:32)
[2022-09-13] MEDS: lisinopriL 5 MG TABLET PO (08:32)
[2022-09-13] MEDS: ACETAMINOPHEN 500 MG TABLET 1000 MG PO (09:08)
--- NOTE | 2022-09-13 10:10 | PM.PNGS ---
Progress Note: A&P Assessment and Plan (1) History of colostomy reversal: Code(s): Z98.890 - Other specified postprocedural states Status: Acute Assessment and Plan: Continues to improve. Tolerating a soft diet. He is tolerating activity. Abdominal pain is better. Encouraged transitioning to oral analgesics for pain control. May be able to discharge later today or tomorrow if pain is controlled on oral analgesics. Plan I have discussed the patient's case and plan of care with Dr. Emery. Subjective Subjective Date/Time Seen: 09/13/22 09:30 Post Op day: 3 (Robotic assisted laparoscopic colostomy takedown with stapled end-to-end colonic anastomosis) Patient reports: pain is less, tolerating a regular diet, voiding w/o difficulty, flatus, bowel movement and afebrile Interval history: Patient doing well today. He is tolerating a soft diet and had a BM this morning. No nausea, vomiting, or bloating. He had Morphine around 5am this morning but said he wants to stop taking any narcotics. He feels his abdominal pain has improved and he tried taking Tylenol this morning instead. He is only having some LLQ incisional pain that is currently well-controlled. He has not tried any of the oxycodone in a few days, which he says is because he doesn't like the way it makes him feel. Review of Systems Review of Systems: All systems reviewed & are unremarkable except as noted in HPI and below Constitutional: Constitutional: Reports as per HPI, Reports no additional constitutional complaints, Denies chills, Denies fever(s) and Denies headache(s) Cardiovascular: Cardiovascular: Reports no additional cardiovascular complaints, Denies chest pain and Denies leg edema Respiratory: Respiratory: Reports no additional respiratory complaints, Denies cough and Denies dyspnea Gastrointestinal: Gastrointestinal: Reports as per HPI and Reports no additional gastrointestinal complaints Neurologic: Reports system reviewed and no additional complaints, except as documented, Denies headache(s) and Denies focal weakness Exam Const: General: comfortable and no acute distress Orientation/consciousness: patient oriented x3 Resp: Effort & Inspection: normal respiratory effort Auscultation: clear to auscultation bilaterally Cardio: Rate: regular rate Rhythm: regular rhythm GI: Inspection: non-distended GI Palp: Yes Soft to palpation, Yes Tenderness to palpation present (GI) (incisional tenderness and tender in the mid upper abd he reports is chronic), No Guarding due to palpation present (GI) and No Rebound tenderness present Auscultation: normal bowel sounds Other: Trochar site incisions dry with glue intact. LLQ dressing and packing removed, minimal serosanguineous drainage, no erythema, yolanda intact. Neuro: General: moves all extremities and no focal motor deficits Extrem: General: no calf tenderness and no edema Psych: Mental Status: mental status grossly normal Insight: Good insight present (Psych) Objective Data Vital Signs Vital Signs: Vital Signs - 24 hr 09/12/22 14:35 09/12/22 17:09 09/12/22 19:38 Temperature 97.7 F 97.7 F Pulse Rate 65 65 66 Respiratory Rate 18 18 Blood Pressure 138/86 142/95 H Pulse Oximetry 99 96 Oxygen Delivery 09/12/22 20:00 09/13/22 04:20 09/13/22 08:30 Temperature 97.8 F Pulse Rate 66 84 68 Respiratory Rate 18 18 Blood Pressure 135/86 Pulse Oximetry 96 98 Oxygen Delivery Room Air 09/13/22 08:15 Temperature 97.9 F Pulse Rate 71 Respiratory Rate 18 Blood Pressure 149/97 H Pulse Oximetry 99 Oxygen Delivery Intake/Output Intake/Output: Intake & Output 09/10/22 09/11/22 09/12/22 09/13/22 23:59 23:59 23:59 23:59 Intake Total 450 2660 240 590 Output Total 700 700 700 Balance -250 1960 240 -110 Meds/Results Medications: Active Medications Generic Name Dose Route Start Last Admin Trade Name Freq PRN Reason Stop Dose Admin Acetaminophen 1,000
[2022-09-13 12:00] VITALS: BP 144/96; PULSE 76; RESP 18; TEMP 36.4; O2SAT 99
--- NOTE | 2022-09-13 12:25 | PCCCNOTE ---
On 09/13/22, the student, [Joyce Laird ], provided care and completed [employer] [facility] documentation on this patient. I have reviewed the student's documentation and agree with the findings.
--- NOTE | 2022-09-13 14:48 | PM.DS ---
DS: Admitting Diagnosis Discharge Date 09/13/2022 Admitting Diagnosis Colostomy in place History of perforated diverticulitis DS: Discharge Diagnosis Discharge Diagnosis (1) Colostomy in place: Code(s): Z93.3 - Colostomy status Status: Resolved Assessment and Plan: 09/10/2022 - robotic assisted laparoscopic colostomy takedown with stapled end-to-end colonic anastomosis - by Dr. Emery (2) Hypokalemia: Code(s): E87.6 - Hypokalemia Status: Acute Assessment and Plan: Potassium slightly low postoperatively on serial labs. Replaced with KCL 20 mEq b.i.d. and potassium today is 3.6. Will discharge with KCl daily for the next 3 days and repeat a BMP in 1 week. DS: Summary Hospital Course Reason for hospitalization: This is a 46-year-old man who had perforated diverticulitis last year which required a Inés's procedure and creation of an end colostomy. He has done well over the past 6 months and had a colonoscopy which showed no evidence of other colonic lesions. He presented on 09/10/2022 for takedown of the colostomy and restoring continuity of his GI tract. Hospital Course: Patient underwent robotic assisted laparoscopic colostomy takedown by Dr. Emery on 09/10/2022. Dr. Henry additionally did a cystoscopy with placement of bilateral ureteral catheter at the beginning of the procedure for ureteral identification. Stents were removed at the end of the case. He was slowly advanced on his diet to a soft diet by postop day 2. Bowel function returned postop day 3. Postoperative pain was being controlled with IV analgesics and transitioned to oral analgesics. He was tolerating activity. His left lower quadrant incision had yolanda and had iodoform packing wicking between each staple, which was being done daily by nursing while hospitalized. By postop day 3, the patient was stable for discharge. He was tolerating a soft diet and bowel function had returned. Pain was controlled throughout the day today with oral analgesics. The patient actually prefers to avoid any narcotics on discharge. Will discharge this afternoon with follow-up scheduled with Dr. Emery in 1 week. Status at Discharge Functional status at discharge: independent ambulation Overall status at discharge: patient is progressing back to baseline Time Spent with Patient Time attestation: Total time spent providing and/or coordinating discharge services: Time spent: Less than 30 minutes DS: Data Data Completed and Pending Pending studies at discharge: Pending at discharge 09/10/22 13:51 Surgical [PTH] Routine Labs on day of discharge: Labs from last 24 hours 09/13/22 05:05 Potassium 3.6 Procedures/Treatments: Procedures Operation Date: 09/10/22 07:30 Actual Procedure Side Surgeon p Robotic Assisted Laparoscopic Colostomy Take Down Not Applicable Alfredo Emery MD s Stent Placement for Abdominal Surgery Bilateral Pb Henry MD Discharge Plan Discharge Attending physician on discharge: Alfredo Emery Consulting providers: Pb Henry Discharging Clinician: Radha Downs Anticipated Discharge Date/Time: 09/13/22 14:48 Patient Disposition: Home, Self-Care Activity: may shower and other - see discharge instructions Diet: low fiber Wound Care Instructions: change dressing daily and other - see discharge instructions Discharge Instructions: SURGERY DISCHARGE INSTRUCTIONS: Remove gauze dressing before shower. May shower over incision with mild soap and water, then pat dry. Apply new gauze dressing and tape daily. Follow-up with Dr. Emery as scheduled on 09/22/22 at 1:15 pm in our office. Call sooner with any surgical concerns. No lifting more than 5-10 lbs until instructed otherwise by your surgeon. Walk three times daily. Stairs are okay. No driving for 1 week Do not submerge in a bath/water. May alternate Tylenol 1-2 extra strength tablets every 6 hours
== END 2022-09-13 15:18 | disposition home or self-care (01) | DRG 223 ==
LOC: ANH2MED 16:21
PROVIDERS: Surgery; Urology; Admitting Provider Surgery; PCP Family Medicine; Visit Provider Nurse Practitioner Family
PROC: 0DSM4ZZ Reposition Descending Colon, Percutaneous Endoscopic Approach (ICD-10-PCS; principal; 2022-09-10 07:30)
PROC: 0T788DZ Dilation of Bilateral Ureters with Intraluminal Device, Via Natural or Artificial Opening Endoscopic (ICD-10-PCS; 2022-09-10 07:30)
DX: Z43.3 Encounter for attention to colostomy (principal); E87.6 Hypokalemia; I10 Essential (primary) hypertension; Z87.891 Personal history of nicotine dependence
CPT/HCPCS: 36415; 80048; 84132; 85025; 85027; 88305; A9270; C1729; C1758; C1769; C9290; J0131; J0360; J0690; J1100; J1170; J1650; J1885; J2250; J2270; J2405; J2704; J3010; J7030; J7120

== ENCOUNTER 2022-09-22 12:30 | Outpatient (CLI) | payer OTHER, SELFPAY ==
[2022-09-22 13:11] LABS: Anion Gap 7 mmol/L (8-16); Blood Urea Nitrogen 9 mg/dL (9-20); Calcium 9.1 mg/dL (8.4-10.2); Carbon Dioxide 28 mmol/L (22-30); Chloride 101 mmol/L (98-107); Estimated Glomerular Filt Rate > 60; Glucose 96 mg/dL (65-110); Potassium 4.5 mmol/L (3.4-5.0); Sodium 136 mmol/L (137-145)
== END 2022-09-22 12:31 | disposition home or self-care (01) ==
PROVIDERS: PCP Family Medicine; Visit Provider Nurse Practitioner Family
DX: E87.6 Hypokalemia (principal)
CPT/HCPCS: 36415; 80048